=== PATIENT | female | born 1945 | race Caucasian/White ===

== ENCOUNTER 2018-01-07 09:56 | Inpatient (IN) ==
[2018-01-07] MEDS ORDERED: ONDANSETRON 4 MG/2 ML INJECTION IVP PRN (10:31)
[2018-01-07] MEDS ORDERED: METOCLOPRAMIDE 10mg/2ml INJECTION IVP PRN (10:31)
[2018-01-07] MEDS ORDERED: VANCOMYCIN 1,000 MG in NS 500ml 500 ML IV ONE (10:31)
[2018-01-07] MEDS ORDERED: VANCOMYCIN - PHARMACY CONSULT MC ONE (10:31)
[2018-01-07 11:03] VITALS: BMI 24.6
--- NOTE | 2018-01-07 11:06 | XRay Report ---
Indication: chills, r/o sepsis PROCEDURE: XR chest 1V: Encounter: Initial Comparison: December 24, 2017 Findings: Increasing small left pleural effusion with left basilar compressive atelectasis. Prior right pleural effusion has decreased or resolved. Right PICC line in place with the tip projecting over the superior SVC. No pneumothorax. Right lung is clear. Heart size and mediastinal contours are stable. Pulmonary vascularity is stable. Impression: Increasing small left effusion. .
[2018-01-07] MEDS: SALINE FLUSH 10ml SYRINGE IV PRN ×4 (11:14→18:57)
[2018-01-07] MEDS: NS FLUSH BAG 500ml IV PRN ×3 (11:14→16:17)
[2018-01-07] MEDS: AZTREONAM 1 G in NS 100 ML IV SCH ×2 (11:15→18:14)
--- NOTE | 2018-01-07 11:21 | History & Physical Report ---
History of Present Illness Date: 01/07/18 Chief complaint: Legs are weak HPI: Doris Phelps is a 72 year old woman who was directly admitted from Dr. Gutierrez's office after a near-syncopal event. She has a hx of multiple myeloma, diagnosed initially in January, with recent recurrence discovered via bone marrow biopsy in Dec, 2017. She has been weak and fatigued and has required recent transfusions of platelets and blood. When she arrived in the office, she stated that her legs became weak and she slid down the wall. She denied any preceding sx including chest pain, palpitations, dizziness/vertigo, dyspnea, nausea or diaphoresis. She wasn't sure if she lost consciousness or not -- staff who witnessed the event report that she did not lose consciousness. She recalls recognizing everyone immediately after this event and denies seizure-like activity, oral injury (ie biting tongue), or incontinence. She also denies any recent illnesses such as cough, sinus congestion/drainage, sore throat, abdominal pain, n/v/d, or dysuria. She denies fever but reports feeling chilled. She has had poor oral intake/anorexia for the last year and has lost 65 lbs since initially diagnoses. She has a hx of constipation but this is kept under control with a daily stool softener. She denies black/bloody stools. She occasionally has trouble swallowing, especially meat, but denies choking. She's noticed that she's bruising much easier now. She states that she voids frequently but this improved some after stopping her Lasix. She denies leg swelling but states that she has always had big ankles and earlier had some mild tenderness to her medial left ankle. She denies other joint pain/swelling. In the clinic, her BP was 87/64. She was given a 500 cc NS bolus. Labs showed severe anemia and thrombocytopenia (hgb of 5.4 and platelets of 6). In addition , WBC was only 0.7. Lactate and procalcitonin were negative. BC x2 were drawn and UA was negative for UTI. CXR showed small left effusion that was increasing in size with compressive atelectasis but a previously noted right effusion had resolved. Also, K and mag were both slightly low at 3.3 and 1.5. Review of Systems All systems PM: 10-point ROS was reviewed, no additional remarkable complaints except - EENMT Eyes: Present: requires corrective lenses - Integumentary/Breasts Integumentary: Absent: rash Past Medical History Medical History: Medical History (Last Updated 04/24/17 @ 09:23 by Dennise Myrick) Hypertension Medical History Updates: Multiple myeloma Surgical History: Tubal ligation. Right humerus ORIF Dr. Montemayor 2016 Family History: Family History (Last Updated 04/24/17 @ 09:28 by Dennise Myrick) Mother Non-Hodgkin lymphoma Father Heart disease Diabetes Family History Updates: Mother - at age 86 of NHL; also had breast cancer in her 70s. She also had high cholesteral; CAD; CABG x3; PVD. Father - diabetes ; needed leg amputation from diabetes; slow bone cancer that wasn't r/t to . of CHF, age 86. 1 sister (younger) - healthy Family History: As Above - Social History Smoking status: Never smoker (second hand exposure all her life) Substance use type: does not use Alcohol intake frequency: does not drink Household members: significant other (He is ill with metastatic prostate cancer) Current occupational status: retired (age 64) Previous occupational history: [employer]; [employer]; [employer] @ [employer] Medications Home Medications Medication Instructions Recorded Confirmed Type Zovirax (acyclovir) 400 mg tablet 400 mg PO BID tab 04/24/17 01/07/18 History calcium carbonate 600 mg (1,500 1 tab PO BID 04/24/17 01/07/18 History mg)-vitamin D3 400 unit tablet Norvasc (amlodipine) 5 mg tablet 5 mg PO .COMPLEX #30 tab 10/23/17 01/07/18 Rx lisinopril 20 mg tablet 20 mg PO DAILY 10/23/17 01/07/18 History lenalidomide 10 mg capsule 2 cap PO DAILY 28 Days #28 11/22/17 01/07/18 History oxycodone-acetaminophen 5 mg-325 1 tab PO Q6H #30 tab 12/13/17 01/07/18 Rx mg tablet Potassium Chloride 20 meq PO DAILY 01/07/18 01/07/18 History Allergies Allergy/AdvReac Type Severity Reaction Status Date / Time Penicillins Allergy Mild RASH Verified 01/07/18 11:09 Sulfa (Sulfonamide Allergy Mild RASH Verified 01/07/18 11:09 Antibiotics) KELFEX AdvReac Diarrhea Uncoded 11/22/17 10:56 Exam Vital Signs: Temperature 98.2 F 01/07/18 10:37 Pulse Rate 95 01/07/18 10:37 Respiratory Rate 24 01/07/18 10:37 Pulse Oximetry 93 01/07/18 10:37 Telemetry Rhythm: Sinus Rhythm Height/Weight/BMI: Height 1.57 m Weight 61.2 kg Body Mass Index 24.6 - Constitutional Present: no acute distress, well nourished, well developed, thin - Routine HEENT Exam Head: Present: normocephalic Eye: Present: PERRL. Absent: conjunctival icterus, scleral injection ENT: Present: mucous membranes moist, oropharynx clear - Routine Neck Exam Present: supple. Absent: lymphadenopathy - Routine Respiratory Exam Present: decreased breath sounds (b/l bases, L>R) - Routine Cardiovascular Exam Present: RRR, S1, S2 - Routine Abdominal Exam Present: soft, normoactive bowel sounds, non distended, non tender - Routine Extremities Exam Present: no edema, pulses intact. Absent: calf tenderness, joint swelling Comments: no tenderness to left ankle PICC right arm - Routine Skin Exam Present: pallor, warm, ecchymosis (arms) - Routine Neurological Exam Present: alert, oriented X3, CN II-XII intact, moving all extremities, vision grossly intact, hearing grossly intact, normal speech. Absent: sensory deficit , motor deficit, altered mental status, facial asymmetry - Routine Psychiatric Exam Present: normal affect, normal thought process, cooperative Results - Labs CBC & Chem 7: 01/07/18 08:35 - Imaging and Cardiology Chest x-ray Status: image reviewed by me Additional comments: Increasing small left pleural effusion with left basilar compressive atelectasis. Prior right pleural effusion has decreased or resolved. Right PICC line in place with the tip projecting over the superior SVC. No pneumothorax. Right lung is clear. Assessment and Plan Assessment and Plan: Assessment Near syncope Pancytopenia (severe neutropenia, anemia, thrombocytopenia) Hypotension - resolved (Underlying HTN) Hypomagnesemia (POA) Hypokalemia (POA) HTN Moderate Protein Calorie Malnutrition Rule out sepsis - at time of admission, she had 3 SIRS criteria of HR >90, tachypnea, and leukopenia without identified infectious source Small left pleural effusion Multiple myeloma Plan Admit to CCU, inpatient status. Neutropenic precautions implemented. PRBC x2 units ordered. Platelet packs x2. Consult Dr. Gutierrez. Oncologist: Dr. Ann. Start vancomycin (per pharm), levofloxacin, aztreonam until sepsis/infectious etiology can be ruled out. Follow results of BC. 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 Start NS at 130 mL/hr & hold antiHTN meds. Replace K and mg PO - recheck in am. Consult CM for discharge planning - her sig other also is ill with cancer; sister is a marketing traffic coordinator and she is planning on sx soon herself. May need HH. Advanced directive info being faxed over. Full code status. PCP: Dr. Hummel. DVT Prophylaxis: SCD's Resuscitation Status: Full Code - Physician Narrative Physician: Allen Horn MD Narrative: Date: 01/07/18 Time: 1420 Have independently interviewed and examined pt. Chart reviewed. Cased discussed with my ARPN. Care plan developed with my supervision; agree with above. Not doing well. Feeling weak and puny for last several days. Oral drive decreased-not very hungry and difficult to find foods that sound appealing. Stools stable. Notes frequent urinations but not having burning or discomfort. Slight cough but no pain with breathing of chest congestion. Denies palpitations. Chills at times. In clinic had near syncopal event. CBC with pancytopenia. BP low. Made direct admit to [facility] CCU for further care and support. Lungs: decreased, no distress CV: regular AB: soft nt/nd EXT: +2 BLE MSE: awake alert Plan: Inpatient admission to [facility]. Will start empiric antibiotics due to pancytopenia and hypotension-exclude sepsis as source of symptoms. IVF to help BP. Transfusion of 2 units PRBC due to anemia and 2 units Platelets due to thrombocytopenia - with Chemo, patient unlikely to improve counts on her own. Neutropenic precautions. SCD - Avoid Lovenox due to thrombocytopenia. Monitor blood counts. Replace MG and Phos. Full code. Care to return to Dr Hummel at time of discharge from [facility]. Hospital Course Summary Disclaimer: The visit summary below is not to be considered part of the above Progress Note. Hospital Course: 01/07/18 Admit to CCU, inpatient status. Neutropenic precautions implemented. PRBC x2 units ordered. Platelet packs x2. Consult Dr. Gutierrez. Oncologist: Dr. Ann. Start vancomycin (per pharm), levofloxacin, aztreonam until sepsis/infectious etiology can be ruled out. Follow results of BC. 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 Start NS at 130 mL/hr & hold antiHTN meds. Replace K and mg PO - recheck in am. Consult CM for discharge planning - her sig other also is ill with cancer; sister is a marketing traffic coordinator and she is planning on sx soon herself. May need HH. Advanced directive info being faxed over. Full code status.
[2018-01-07] MEDS: LEVOFLOXACIN PB 750 MG/150 ML BAG IV SCH (12:01)
[2018-01-07] MEDS ORDERED: NS 1,000 ML IV SCH (12:30)
[2018-01-07] MEDS ORDERED: Oxycodone/Acetaminophen 5/325 1 TAB PO SCH (12:30)
--- NOTE | 2018-01-07 13:16 | Pharmacy Consult-Antibiotics ---
Pharmacy Consult-Vancomycin - Laboratory Information Creatinine 0.8 mg/dL (0.7-1.2) 01/07/18 08:35 - Consult Information Consult noted by Lucia Ratliff APRN to begin vancomycin therapy for Ms Phelps, who is 72yo and weighs 61.2kg. Will give vancomycin 1500mg IV as a loading dose followed by vancomycin 1250mg IV q18h. Will continue to monitor. Thank you.
[2018-01-07] MEDS ORDERED: MAGNESIUM SULFATE 1gm PREMIX 1 GM/100 ML BAG IV ONE (13:56)
[2018-01-07] MEDS ORDERED: BISACODYL 10 MG SUPPOSITORY RECTALLY PRN (13:56)
[2018-01-07] MEDS ORDERED: POLYETHYL GLYCOL 3350 17gm PACKET PO PRN (13:56)
[2018-01-07] MEDS ORDERED: ACETAMINOPHEN 325 MG TABLET PO PRN (13:57)
[2018-01-07] MEDS: MAGNESIUM OXIDE 400 MG TABLET PO SCH ×2 (14:29→22:26)
[2018-01-07] MEDS ORDERED: NS FLUSH BAG 500ml IV PRN (17:17)
[2018-01-07] MEDS: ACYCLOVIR 200 MG CAPSULE PO SCH (22:26)
[2018-01-07] MEDS: CALCIUM 600 + VIT D 400 TABLET PO SCH (22:26)
[2018-01-08] MEDS: AZTREONAM 1 G in NS 100 ML IV SCH ×2 (00:40→08:01)
[2018-01-08] MEDS ORDERED: POTASSIUM CHLORIDE PREMIX 10 MEQ/100 ML BAG IV SCH (05:15)
[2018-01-08] MEDS ORDERED: LENALIDOMIDE PO SCH (09:00)
[2018-01-08] MEDS: CALCIUM 600 + VIT D 400 TABLET PO SCH ×2 (09:59→22:20)
[2018-01-08] MEDS: ACYCLOVIR 200 MG CAPSULE PO SCH ×2 (09:59→22:20)
[2018-01-08] MEDS: MAGNESIUM OXIDE 400 MG TABLET PO SCH ×2 (09:59→22:21)
[2018-01-08] MEDS: POTASSIUM CHLORIDE PREMIX 10 MEQ/100 ML BAG IV SCH ×3 (11:12→13:38)
[2018-01-08] MEDS: LEVOFLOXACIN PB 750 MG/150 ML BAG IV SCH (12:00)
--- NOTE | 2018-01-08 13:45 | Progress Note ---
- Date 01/08/18 Subjective: Mrs. Phelps denies dyspnea this morning and reports that she felt steady when she was out of bed to bedside commode. Edema is slightly improved and she's had no further chilling and no fever overnight. She slept well after Davis catheter was placed due to need to diurese following multiple blood products yesterday. She denies nausea and had a bowel movement earlier. She was able to eat this morning but reports that she has a coating on her tongue and that her tongue "tastes nasty". Overall she feels improved with residual weakness. Objective Vital signs: Temperature 99.1 F 01/08/18 12:00 Pulse Rate 89 01/08/18 12:00 Respiratory Rate 24 01/08/18 12:00 Blood Pressure 135/66 01/08/18 12:00 Pulse Oximetry 95 - RA 01/08/18 12:00 I/O 3193/2455 NAD, alert, fluent speech Conjunctiva clear, sclera anicteric, no palpebral petechiae/hemorrhages, oropharynx clear, tongue with white coating consistent with thrush Respirations nonlabored, good airflow, breath sounds clear except at the bases where diminished Regular rhythm, S1-S2, soft systolic murmur left upper sternal border Abdomen soft, nontender, bowel sounds present Hands are slightly puffy bilaterally, +1 edema bilateral lower extremities Skin without petechiae but multiple small bruises in various stages present Moving all extremities well; left midline catheter-insertion site unremarkable Degenerative changes of small joints of the hands present without active synovitis Calm, cooperative Height/Weight/BMI: Height 1.57 m Weight 68.8 kg Body Mass Index 24.6 Results - Labs CBC & Chem 7: 01/08/18 08:41 01/08/18 04:25 Labs: WBC 0.4, platelet count 41; ANC 80 Bilirubin 2.2, remainder of liver enzymes unremarkable, albumin 2.3, prealbumin albumin 9.5 Magnesium 1.7 Microbiology Results: Blood cultures 2 and urine culture drawn yesterday in the office both negative at 24 hours - Imaging and Cardiology Chest x-ray Status: image reviewed by me (small left pleural effusion on chest x-ray 01/07) Assessment and Plan (1) Near syncope Current visit: Yes Status: Acute (2) Hypotension Current visit: Yes Status: Acute Assessment and Plan: Assessment Near syncope Pancytopenia (severe neutropenia, anemia, thrombocytopenia) Volume overload, posttransfusion Hypotension - resolved (Underlying HTN) Hypomagnesemia (POA) Hypokalemia (POA) HTN Moderate Protein Calorie Malnutrition Rule out sepsis - at time of admission, she had 3 SIRS criteria of HR >90, tachypnea, and leukopenia without identified infectious source Small left pleural effusion Multiple myeloma Thrush-01/08/18 Plan: Hemodynamically improved today although weakness persists. PT/OT consults. Marked neutropenia-ANC 80. No fever and tachypnea/tachycardia have subsided with stabilization of hemoglobin. Blood cultures negative overnight. -Vancomycin and aztreonam discontinued; continue Levaquin orally for prophylaxis at present. Will discuss anticipated duration of neutropenia with oncology. Repeat CBC this afternoon, hemoglobin has fluctuated somewhat since transfusion of 2 units PRBCs yesterday; platelet count [id number]--> may need platelets again in the next 1-2 days. Ongoing potassium replacement IV this morning; repeat electrolytes this afternoon to determine if adequately replaced. Probable thrush-nystatin suspension initiated. Volume status improved with diuresis late yesterday. Anticipate discontinuation of Davis catheter in the morning tomorrow if no further diuretics. Discussed with Dr. Gutierrez earlier. - Physician Narrative Narrative: Date: 01/08/18 Time: 1342 Hospital Course Summary Disclaimer: The visit summary below is not to be considered part of the above Progress Note. Hospital Course: 01/07/18 Admit to CCU, inpatient status. Neutropenic precautions implemented. PRBC x2 units ordered. Platelet packs x2. Consult Dr. Gutierrez. Oncologist: Dr. Ann. Start vancomycin (per pharm), levofloxacin, aztreonam until sepsis/infectious etiology can be ruled out. Follow results of BC. 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 Start NS at 130 mL/hr & hold antiHTN meds. Replace K and mg PO - recheck in am. Consult CM for discharge planning - her sig other also is ill with cancer; sister is a diving coach and she is planning on sx soon herself. May need HH. Advanced directive info being faxed over. Full code status. 01/08/18 Hemodynamically improved today although weakness persists. PT/OT consults. Marked neutropenia-ANC 80. No fever and tachypnea/tachycardia have subsided with stabilization of hemoglobin. Blood cultures negative overnight. -Vancomycin and aztreonam discontinued; continue Levaquin orally for prophylaxis at present. Will discuss anticipated duration of neutropenia with oncology. Repeat CBC this afternoon, hemoglobin has fluctuated somewhat since transfusion of 2 units PRBCs yesterday; platelet count [id number]--> may need platelets again in the next 1-2 days. Ongoing potassium replacement IV this morning; repeat electrolytes this afternoon to determine if adequately replaced. Probable thrush-nystatin suspension initiated.
[2018-01-08] MEDS: NYSTATIN 500,000 units/5 ml ORAL LIQUID PO SCH ×3 (14:57→22:21)
[2018-01-08] MEDS: SALINE FLUSH 10ml SYRINGE IV PRN (16:32)
--- NOTE | 2018-01-08 21:55 | Consult Note ---
Oncology HPI - Data of Consult Patient: known to practice within the last 3 years Consult date: 01/08/18 Requesting Physician: Eula Rahman MD Primary Care Provider: Rahul Hummel DO - Consult Narrative Reason for consult: Multiple myeloma History of present illness: This is a 72-year-old woman with a history of chronic low back pain, noted during routine medical visit and a follow-up for hypertension, to have an elevated serum protein of 8.3. Otherwise, CMP within normal range with a creatinine of 0.8. Serum protein electrophoresis showed an M-spike in the gamma region. Myeloma studies at time of diagnosis 1. Serum protein immunofixation: New monoclonal in beta2 and gamma region identified as IgA kappa by immunofixation. The monoclonal spike reported at 3.1. 2. 24 hour urine protein electrophoresis immunofixation: New IgA kappa detected. 3. Serum light chain kappa/lambda ratio: Elevated at 124 (N 0.2600 - 1.65) 4. Quantitative immunoglobulins: IgG low at 365 mg/dL, IgM low at 26 and IgA elevated at 3,872 mg/dL. 5. Beta-2 macroglobulin: 2.12 6. Skeletal survey: Lytic lesion in the distal right humerus. 7. Bone marrow aspiration and biopsy from 01/30/2017 showed hypercellular marrow 7080% with decreased trilineage hematopoiesis involved by plasma cell neoplasm/ plasma cell myeloma with mildly atypical monoclonal plasma cells estimated at count 475% of her cells. Chromosome analysis revealed normal female karyotype 40 6XX. Myeloma FISH panel was abnormal with gain of 1q21, IGH/FR3 fusion-t(4;14 ) monosomy for chromosome 13. Patient was started on RVD on 03/19/2017. 06/18/2017: Assessment after 4 cycles of RVD: 1. Bone marrow aspiration biopsy on 06/05/17 after 4 cycles of RVD showed no morphologic diagnostic evidence of plasma cell neoplasm identified. The bone marrow is mildly hypercellular 4050% with trilineage hematopoiesis. There is only 1-2% polytypic plasma cells. At time of diagnosis, bone marrow on 01/31/2017 showed atypical monoclonal plasma cells 75% of motor cells. Flow cytometry showed no significant immunophenotypic abnormalities detected. Cytogenetics revealed 46XX female karyotype. 2. Myeloma markers: Beta-2 microglobulin normal at 1.99, SPEP with immunofixation showed no monoclonal spike. Essentially normal electrophoretic pattern. [place] lambda ratio slightly elevated at 2.85 down from 124. IgA normal at 60 down from more than 3000. CBC and CMP unremarkable. The patient underwent autologous stem cell transplant at [facility] by Dr. Patel on 08/09/2017 without major complications. She has engrafted and discharged for follow-up as an outpatient. She is doing fine. She has no fever. 11/05/2017: The patient has been doing very well with no problems. She is scheduled to see Dr. Patel on November 18 for day +100 post transplant follow-up. Lab: WBC 4.1 with ANC of 1.8, hemoglobin 9.9 and platelet count 214,000. Chemistry unremarkable. 12/04/2017: The patient presented to Dr. Hummel's office with chest wall pain, left lower rib pain. Bone scan on 11/27/2017: Evidence of metastatic disease in the right humerus and left sixth rib. X-ray of ribs: Healing left sixth rib fracture. SPEP/JACKELIN on 11/11/2017: No M spike observed. 24 hour urine protein electrophoresis/JACKELIN: No M spike observed. Free serum light chains kappa 587, lambda 16 with a ratio of 36.72. --Repeat myeloma markers on 12/03/2017. IgG 779, IgA 56 and IgM 37: CBC with stable hemoglobin of 9.8 Chemistry with creatinine of 0.9, normal LFTs, elevated alkaline phosphatase at 173. Total protein 6.6 and calcium 9.4. 12/11/2017: Myeloma markers: Beta-2 microglobulin elevated at 7.68 up from 1.99. Immunoglobulins: IgG 779, IgA 56 and IgM 37.3. SPEP/JACKELIN: Normal, previously reported IgA kappa was not detected by immunofixation. Serum free light chains: [place] 410, lambda 0.9450 with a ratio of 434. LDH elevated at 808. Hemoglobin 8.9. Creatinine 0.9. Calcium 9.4 with normal ionized calcium. 12/17/2017: The patient continues to have left-sided chest wall pain. X-rays showed [address] scan of the chest without contrast on 12/13/2017 shown interval development of lung nodules some of them pleural-based highly concerning for recurrent disease versus opportunistic infection. CBC today: WBC 5.9 with ANC of 1.8, hemoglobin down to 8.4 and platelets count down to 71,000. Creatinine 3.2 12/18/2017: PET scan on 12/18/2017 The PET scan showed multifocal areas of abnormal FDG uptake in the pelvic bones humerus, soft tissue mass in the left posterior mediastinum at the level of T9-T10 with an SUV of 7.9. There are multiple small pulmonary nodules without definite FDG uptake. Repeat chemistry came back with creatinine of 2.6 down from 3.2 and BUN of 50. 6 CRP elevated at 233.9. ESR 108. 12/24/2017: For acute renal failure, the patient has been getting hydration almost daily. Her creatinine fortunately went down from more than 3 to the normal range. She is requiring potassium replacement. Ultrasound showed no hydronephrosis. Bone marrow on 12/17/2017: Recurrent plasma cell myeloma with sheets of atypical monoclonal plasma cells occupying almost the entire samples bone marrow space. Hypercellular marrow 95% with markedly diminished trilineage hematopoiesis. Moderate increased marrow reticulin fibers. FISH revealed abnormal myeloma panel : Gain of 1q21, FGFR3/IGH translocation t(4;14), monosomy of chromosome 13 and deletion of TP53/17p. 12/31/17: The patient received the first cycle of DRd on 12/25/2017 without complications. Her lab today remarkable for ANC of 0.8, hemoglobin of 6.1 and platelets count of 10,000. Chemistry potassium 2.9. Creatinine 1.1. Calcium 8.1. Bilirubin 2.0. LDH down to 300 for more than 1000. The patient has felt better with less chest wall/ribs pain. She is using less pain medicine. 01/07/18: Upon arrival at the clinic, patient got dizzy and went down to the floor. Blood pressure was low.. She states that she does not feel comfortable going home, due to no one being able to care for her. I am going to plan on admission to [facility] [place]. 01/08/18: Patient admitted to ICU yesterday she was moved up to the floor today. She received blood and platelets. Review of Systems - Constitutional Constitutional: Present: anorexia, fatigue, weakness, weight loss - EENT Eyes: Present: blurry vision (needs classes) Nose: Absent: nosebleeds Mouth/Throat: Absent: pain, sore throat - Cardiovascular Cardiovascular: Present: syncope, edema. Absent: chest pain - Respiratory Respiratory: Absent: cough, dyspnea, hemoptysis - Gastrointestinal Gastrointestinal: Absent: abdominal pain, nausea, vomiting - Genitourinary Menstruation: other (Davis catheter) - Musculoskeletal Musculoskeletal: Present: muscle weakness. Absent: joint swelling - Neurological Neurological: Absent: focal weakness, headache(s), numbness - Hematologic/Lymphatic Hematologic/Lymphatic: Present: anemia, easy bleeding [facility] Patient Stated Medical History Cerebrovascular Accident No Meningitis No Parkinson's Disease No Angina No Cardiac Arrhythmia No Hypertension No Hypotension No Asthma Yes: childhood Gastroesophageal Reflux No Disease Hiatal Hernia No Ulcer No Hx Kidney Stones No Hx Renal Disease No Hx Urinary Tract Infection No Anemia Yes Blood Disorders Yes: multiple myloma 01/30/17 Other Musculoskeletal Yes: spontaneous fractures Clostridium Difficile No MRSA No Sepsis No Blood Transfusions Yes Post Menopausal Yes Clinic Medical History (Last Updated 01/08/18 @ 13:30 by Eula Rahman MD) Fracture of humerus, closed (Acute Medical) Right, s/p ORIF Dr. Marrero 2016 Multiple myeloma (Acute Medical) Hypertension (Chronic Medical) Arthritis Medical History Updates: Multiple myeloma Surgical History: Tubal ligation. Right humerus ORIF Dr. Montemayor 2017 Family History: Family History (Last Updated 04/24/17 @ 09:28 by Dennise Myrick) Mother Non-Hodgkin lymphoma Father Heart disease Diabetes Family History Updates: Mother - at age 86 of NHL; also had breast cancer in her 70s. She also had high cholesteral; CAD; CABG x3; PVD. Father - diabetes ; needed leg amputation from diabetes; slow bone cancer that wasn't r/t to . of CHF, age 86. 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 @ [employer] Current residence: Apartment/Private Home Medications Home Medications Medication Instructions Recorded Confirmed Type Zovirax (acyclovir) 400 mg tablet 400 mg PO BID tab 04/24/17 01/07/18 History calcium carbonate 600 mg (1,500 1 tab PO BID 04/24/17 01/07/18 History mg)-vitamin D3 400 unit tablet Norvasc (amlodipine) 5 mg tablet 5 mg PO .COMPLEX #30 tab 10/23/17 01/07/18 Rx lisinopril 20 mg tablet 20 mg PO DAILY 10/23/17 01/07/18 History lenalidomide 10 mg capsule 2 cap PO DAILY 28 Days #28 11/22/17 01/07/18 History oxycodone-acetaminophen 5 mg-325 1 tab PO Q6H #30 tab 12/13/17 01/07/18 Rx mg tablet Potassium Chloride 20 meq PO DAILY 01/07/18 01/07/18 History Allergies Allergy/AdvReac Type Severity Reaction Status Date / Time Penicillins Allergy Mild RASH Verified 01/07/18 11:09 Sulfa (Sulfonamide Allergy Mild RASH Verified 01/07/18 11:09 Antibiotics) KELFEX AdvReac Diarrhea Uncoded 11/22/17 10:56 Exam Vital signs: Temperature 96.1 F L 01/08/18 15:04 Pulse Rate 84 01/08/18 15:22 Respiratory Rate 18 01/08/18 15:04 Blood Pressure 130/67 01/08/18 15:04 Pulse Oximetry 96 01/08/18 15:04 - Constitutional no acute distress, thin - Routine HEENT Exam Head: Present: normocephalic Eye: Present: EOMI, PERRL ENT: Present: mucous membranes moist - Routine Neck Exam Present: supple. Absent: lymphadenopathy, tenderness - Routine Respiratory Exam Present: CTA bilaterally. Absent: respiratory distress - Routine Cardiovascular Exam Present: RRR, no murmur - Routine Abdominal Exam Present: soft, non distended, non tender. Absent: organomegaly - Routine Extremities Exam Present: edema (1+). Absent: cyanosis, clubbing - Routine Skin Exam Present: dry, warm - Routine Neurological Exam Present: alert, oriented X3, CN II-XII intact - Routine Psychiatric Exam Present: normal affect Oncology Results - Labs CBC & Chem 7: 01/08/18 16:09 01/08/18 16:09 Labs: Short CBC 01/08/18 01/08/18 01/08/18 Range/Units 04:25 08:41 16:09 WBC 0.4 L* D 0.5 L* (4.5-11.0) T/MM3 Hgb 6.7 L D 8.6 L D 7.8 L (12-16) GM/DL Hct 19.0 L D 23.1 L D (36-46) % Plt Count 41 L 26 L* D (130-400) T/MM3 BMP 01/08/18 01/08/18 04:25 16:09 Sodium 139 Potassium 3.1 L 3.6 Chloride 106 Carbon Dioxide 25 BUN 17.0 Creatinine 0.8 Glucose 104 Calcium 7.5 L D Liver Function 01/08/18 Range/Units 04:25 Total Bilirubin 2.20 H (0.20-1.30) MG/DL AST 8 L (14-36) U/L ALT 11 (1-35) U/L Alkaline Phosphatase 84 (38-126) U/L Albumin 2.3 L (3.5-5.0) g/dL Assessment and Plan Assessment and Plan: 1. Syncopal episode while walking in the office 01/07 with associated hypotension . Patient was lowered to the floor by nursing staff. No apparent trauma. Blood pressure at that time was 87 systolic. She was set up and tolerated sitting up in the floor without problems, lifted to a wheelchair and then brought to the treatment room. Blood work was drawn and IV normal saline was started. Lab work came back with a low hemoglobin, low platelets and low white count. Discussed with hospitalist and will make a direct admit. Because of concern about low white count or sepsis, blood cultures have been obtained. Blood cultures are negative at 24 hours patient received blood and platelets yesterday. Counts are improved today platelets are 26,000 today. 2. Multiple myeloma on Darzalex, Revlimid and dexamethasone. Treatment currently on hold 3. Leukopenia secondary to treatment. Will use G-CSF support. WBC 500 on 01/08/18. 4. Anemia. Hemoglobin 5.4 on 01/07/18. This is declined from 7.9 on 01/03/18 after 2 unit packed cells. Currently 7.8 on 01/08/18 transfusion support 5. Thrombocytopenia. Platelets of 6000 down from 10,000 on 01/03/18 after 1 unit of packed red blood cells. She received 2 units of platelets on 01/07/18. Platelets on 01/08/18 are 26K. 6. Hyperbilirubinemia. Bilirubin 2.2 on 01/08/18. Probably related to transfusion
[2018-01-09] MEDS: LEVOFLOXACIN 750 MG TABLET PO SCH (06:40)
[2018-01-09] MEDS: SALINE FLUSH 10ml SYRINGE IV PRN ×3 (06:42→20:08)
[2018-01-09] MEDS: Oxycodone/Acetaminophen 5/325 1 TAB PO PRN ×2 (08:32→13:46)
[2018-01-09] MEDS: ACYCLOVIR 200 MG CAPSULE PO SCH ×2 (09:29→21:50)
[2018-01-09] MEDS: CALCIUM 600 + VIT D 400 TABLET PO SCH ×2 (09:29→21:50)
[2018-01-09] MEDS: NYSTATIN 500,000 units/5 ml ORAL LIQUID PO SCH ×4 (09:30→21:49)
[2018-01-09] MEDS: MAGNESIUM OXIDE 400 MG TABLET PO SCH ×2 (09:30→21:50)
[2018-01-09] MEDS ORDERED: POTASSIUM PHOSPHATE (mMol) 20 MMOL in NS 500ml 500 ML IV SCH (10:15)
[2018-01-09] MEDS ORDERED: CALCIUM CARBONATE Chewable 500mg TABLET PO ONE (16:35)
--- NOTE | 2018-01-09 16:51 | Progress Note ---
- Date 01/09/18 Subjective: Mrs. Phelps reported having mild dyspnea last night which improved with repositioning in bed; nursing reports oxygen was stable on room air throughout the time she described feeling short of breath. She's had 2 watery stools this morning and nursing plans to check C. difficile another stool occurs. Patient reports that she felt good this morning until after cleaning up in her room and brushing her teeth at which time she felt like all of her energy drained out of her and that she felt "shivery" for a brief period of time after which symptoms subsided. She denies abdominal pain, nausea, dysuria, or urinary frequency. She has not had recurrent lightheadedness and she denies any awareness of bleeding. Objective Vital signs: Temperature 97.4 F 01/09/18 12:00 Pulse Rate 88 01/09/18 12:00 Respiratory Rate 16 01/09/18 04:00 Blood Pressure 140/60 H 01/09/18 12:00 Pulse Oximetry 98 01/09/18 12:00 NAD, alert, resting in bed comfortably Conjunctiva clear, sclera anicteric, no petechial hemorrhages seen Oropharynx with residual white plaque on tongue but no ulcerations or petechiae Respirations nonlabored, good airflow, breath sounds clear except decreased breath sounds at the bases posteriorly Regular rhythm, S1-S2 Abdomen soft, nontender, nondistended, bowel sounds present Trace edema bilateral ankles Skin without petechiae but multiple bruises present Moving all extremities well Height/Weight/BMI: Height 1.57 m Weight 60 kg Body Mass Index 24.6 Results - Labs CBC & Chem 7: 01/09/18 04:12 01/09/18 04:12 Labs: S42, B2, L44, M2 ANC 230 Phosphorus 1.6, magnesium 1.6, calcium 7.2, and albumin 2.2 Microbiology Results: Blood cultures 2 and urine culture obtained 01/07/18 ([employer]) all negative to date Assessment and Plan (1) Near syncope Current visit: Yes Status: Acute (2) Hypotension Current visit: Yes Status: Acute Assessment and Plan: Assessment Near syncope Pancytopenia (severe neutropenia, anemia, thrombocytopenia) Volume overload, posttransfusion Hypotension - resolved (Underlying HTN) Hypomagnesemia (POA) Hypokalemia (POA) HTN Moderate Protein Calorie Malnutrition Rule out sepsis - at time of admission, she had 3 SIRS criteria of HR >90, tachypnea, and leukopenia without identified infectious source Small left pleural effusion Multiple myeloma Thrush-01/08/18 Hypophosphatemia-01/09/18 Plan: Hemodynamically improved today although weakness today corresponding to drop in hemoglobin. Transfuse 1 unit packed red blood cells today. Platelet count dropping-reassess with post transfusion hemoglobin; no evidence of bleeding at present-platelet pack if count drops to 10 or below. Marked neutropenia but ANC rebounding slightly today to 230. No fever and tachypnea/tachycardia have subsided with stabilization of hemoglobin. Blood cultures remain negative at 48 hours. -Vancomycin and aztreonam discontinued 01/08; continue Levaquin orally for prophylaxis at present. Potassium and phosphorus replaced IV this morning; reassess tomorrow. Magnesium borderline-increased supplementation to 800 mg twice a day. Probable thrush-nystatin suspension initiated 01/08. Volume status stable. May require additional diuresis with transfusion today; discontinue Davis catheter in the morning. Discussed with Dr. Gutierrez earlier. DVT Prophylaxis: SCD's Resuscitation Status: Full Code - Physician Narrative Narrative: Date: 01/09/18 Time: 1645 Hospital Course Summary Disclaimer: The visit summary below is not to be considered part of the above Progress Note. Hospital Course: 01/07/18 Admit to CCU, inpatient status. Neutropenic precautions implemented. PRBC x2 units ordered. Platelet packs x2. Consult Dr. Gutierrez. Oncologist: Dr. Ann. Start vancomycin (per pharm), levofloxacin, aztreonam until sepsis/infectious etiology can be ruled out. Follow results of BC. BP improved after 500 mL bolus [employer]. Start NS at 130 mL/hr & hold antiHTN meds. Replace K and mg PO - recheck in am. Consult CM for discharge planning - her sig other also is ill with cancer; sister is a mall manager and she is planning on sx soon herself. May need HH. Advanced directive info being faxed over. Full code status. 01/08/18 Hemodynamically improved today although weakness persists. PT/OT consults. Marked neutropenia-ANC 80. No fever and tachypnea/tachycardia have subsided with stabilization of hemoglobin. Blood cultures negative overnight. -Vancomycin and aztreonam discontinued; continue Levaquin orally for prophylaxis at present. Will discuss anticipated duration of neutropenia with oncology. Repeat CBC this afternoon, hemoglobin has fluctuated somewhat since transfusion of 2 units PRBCs yesterday; platelet count [id number]--> may need platelets again in the next 1-2 days. Ongoing potassium replacement IV this morning; repeat electrolytes this afternoon to determine if adequately replaced. Probable thrush-nystatin suspension initiated. 01/09/18 Hemodynamically improved today although weakness today corresponding to drop in hemoglobin. Transfuse 1 unit packed red blood cells today. Platelet count dropping-reassess with post transfusion hemoglobin; no evidence of bleeding at present-platelet pack if count drops to 10 or below. Marked neutropenia but ANC rebounding slightly today to 230. No fever and tachypnea/tachycardia have subsided with stabilization of hemoglobin. Blood cultures remain negative at 48 hours. Potassium and phosphorus replaced IV this morning; reassess tomorrow. Magnesium borderline-increased supplementation to 800 mg twice a day.
--- NOTE | 2018-01-09 17:04 | Progress Note ---
<Maria M Lott Kristi - Last Filed: 01/09/18 17:01> Oncology Subjective Reclining in hospital bed. Alert and oriented. Becomes mildly anxious when discussing current hospitalization/disease regression. Denies fever or chills. Had a single episode of weakness today after had taken a bath and was walking back to her bed. Denies syncope or fall. Eating and drinking better. No new aches or pains. It's pudding consistency stool today, no overt diarrhea General: No fever, no night sweats Eyes: No redness, no pain, no diplopia ENT: No mouth sores, no trouble swallowing Cardiac: No chest pain no palpitations Pulmonary: No cough, no shortness of breath, no wheezing Abdomen: No pain, no nausea vomiting, no diarrhea or constipation : [place] Musculoskeletal: No arthritis, no myalgias Neurological: No headaches, no focal weakness Skin: No rash, no sores Psychiatric: Mild anxiety Exam Vital signs: Temperature 97.4 F 01/09/18 12:00 Pulse Rate 88 01/09/18 12:00 Respiratory Rate 16 01/09/18 04:00 Blood Pressure 140/60 H 01/09/18 12:00 Pulse Oximetry 98 01/09/18 12:00 Narrative: Generic Name Dose Route Start Last Admin Trade Name Freq PRN Reason Stop Dose Admin Acetaminophen 650 mg 01/07/18 13:57 Tylenol PO Q5H PRN Discomfort Acyclovir 400 mg 01/07/18 21:00 01/09/18 09:29 Zovirax 200 Mg PO 400 mg BID ELLIOT Administration Bisacodyl 10 mg 01/07/18 13:56 Dulcolax RECTALLY DAILY PRN Constipation Calcium/Vitamin D 1 tab 01/07/18 21:00 01/09/18 09:29 Caltrate + D PO 1 tab BID ELLIOT Administration Levofloxacin 750 mg 01/09/18 06:30 01/09/18 06:40 Levaquin PO 750 mg ACB ELLIOT Administration Magnesium Hydroxide 30 ml 01/07/18 13:56 Mom PO DAILY PRN Constipation Magnesium Oxide 400 mg 01/07/18 12:28 01/09/18 09:30 Magox PO 400 mg BID ELLIOT Administration Metoclopramide HCl 10 mg 01/07/18 10:31 01/07/18 18:25 Reglan IVP 10 mg Q6H PRN Administration Nystatin 5 ml 01/08/18 13:00 01/09/18 09:30 Mycostatin PO 01/18/18 12:59 5 ml QID ELLIOT Administration Ondansetron HCl 4 mg 01/07/18 10:31 Zofran IVP Q6H PRN Nausea &/or vomiting Oxycodone/Acetaminophen 1 tab 01/07/18 15:00 Percocet 5/325 PO PRN PRN Polyethylene Glycol 17 gm 01/07/18 13:56 Miralax PO DAILY PRN Constipation Potassium Chloride 20 meq 01/08/18 08:00 01/09/18 09:29 Micro-K 10 Meq Capsule PO 20 meq WB ELLIOT Administration Sodium Chloride 500 ml 01/07/18 10:39 01/07/18 16:17 Normal Saline IV 500 ml PRN PRN Administration Sodium Chloride 10 - 80 ml 01/07/18 10:31 01/09/18 06:42 Iv Flush IV 50 ml PRN PRN Administration Flushing Tbo-Filgrastim 300 mcg 01/07/18 21:15 01/08/18 22:22 Granix SQ 300 mcg Q24H ELLIOT Administration Discontinued Medications Generic Name Dose Route Start Last Admin Trade Name Freq PRN Reason Stop Dose Admin Bumetanide 1 mg 01/07/18 18:37 01/07/18 18:57 Bumex 1 Mg/4 Ml Inj. IVP 01/07/18 18:38 1 mg O ONE Administration Calcium Carbonate 500 mg 01/09/18 16:35 01/09/18 16:38 Tums PO 01/09/18 16:36 500 mg O ONE Administration Aztreonam 1 g/ Sodium Chloride 100 mls @ 100 mls/hr 01/07/18 10:45 01/08/18 09:01 IV Infused Q6H ELLIOT Infusion Sodium Chloride 500 mls @ 1,000 mls/hr 01/07/18 10:31 01/07/18 11:15 Normal Saline IV 01/07/18 11:00 Not Given .Q30M ONE Levofloxacin/Dextrose 750 mg in 150 mls @ 100 mls/hr 01/07/18 11:30 01/08/18 13:30 Levaquin 750 Mg Premix IV Infused Q24H ELLIOT Infusion Vancomycin HCl 1,000 mg/ 500 mls @ 250 mls/hr 01/07/18 10:31 01/07/18 12:37 Sodium Chloride IV 01/07/18 10:32 Not Given O ONE Sodium Chloride 1,000 mls @ 130 mls/hr 01/07/18 12:30 01/07/18 18:54 Normal Saline IV Infused .Q7H42M ELLIOT Infusion Vancomycin HCl 1,500 mg/ 500 mls @ 250 mls/hr 01/07/18 13:00 01/07/18 18:14 Sodium Chloride IV 01/07/18 14:59 Infused 1300 ELLIOT Infusion Vancomycin HCl 1,250 mg/ 250 mls @ 200 mls/hr 01/08/18 03:00 01/08/18 04:28 Sodium Chloride IV Infused Q18H ELLIOT Infusion Magnesium Sulfate/Dextrose 1 gm in 100 mls @ 100 mls/hr 01/07/18 13:56 18:57 Mag Sulf 1gm Premix IV 01/07/18 14:55 100 mls/hr O ONE Administration Potassium Chloride 10 meq in 100 mls @ 100 mls/hr 01/08/18 05:15 01/08/18 07: 30 Potassium Chloride Premix IV 01/09/18 09:09 Infused Q6H ELLIOT Infusion Potassium Chloride 10 meq in 100 mls @ 100 mls/hr 01/08/18 09:47 01/08/18 14: 57 Potassium Chloride Premix IV 01/08/18 12:46 Infused Q1H ELLIOT Infusion Potassium Phosphate 20 mmol/ 506.6667 mls @ 100 mls/hr 01/09/18 10:15 10:51 Sodium Chloride IV 01/09/18 15:20 100 mls/hr .Q5H4M ELLIOT Administration Non-Formulary Medication 2 cap 01/08/18 09:00 Lenalidomide [Revlimid] PO DAILY ELLIOT Oxycodone/Acetaminophen 1 tab 01/07/18 12:30 01/07/18 14:29 Percocet 5/325 PO Not Given Q6H ELLIOT Potassium Chloride 20 meq 01/07/18 12:28 01/08/18 14:58 K-Dur 20 Meq Tablet PO Not Given BIDWM ELLIOT Potassium Chloride 20 meq 01/08/18 19:37 01/08/18 20:42 K-Dur 20 Meq Tablet PO 01/08/18 19:38 20 meq ONCE ONE Administration Sodium Chloride 500 ml 01/07/18 17:17 Normal Saline IV PRN PRN Vancomycin HCl 1 each 01/07/18 10:31 01/07/18 11:15 Pharmacy Consult - Vancomycin 01/07/18 10:32 1 each O ONE Administration - Constitutional mild distress, well nourished, well developed - Routine HEENT Exam Head: Present: normocephalic Eye: Present: EOMI ENT: Present: mucous membranes dry - Routine Neck Exam Present: supple. Absent: lymphadenopathy - Routine Respiratory Exam Present: CTA bilaterally. Absent: wheezes, crackles - Routine Cardiovascular Exam Present: RRR, no murmur - Routine Abdominal Exam Present: soft, non tender. Absent: mass - Routine Extremities Exam Present: no edema, full ROM - Routine Back/Spine/Pelvis Exam Back/Spine: Absent: vertebral tenderness - Routine Skin Exam Present: intact, dry. Absent: rash - Routine Neurological Exam Present: alert, oriented X3, moving all extremities - Routine Psychiatric Exam Present: normal affect, cooperative Oncology Results - Labs CBC & Chem 7: 01/09/18 04:12 01/09/18 04:12 Labs: Short CBC 01/09/18 Range/Units 04:12 WBC 0.5 L* (4.5-11.0) T/MM3 Hgb 7.2 L (12-16) GM/DL Hct 21.9 L (36-46) % Plt Count 17 L* (130-400) T/MM3 BMP 01/09/18 04:12 Sodium 136 Potassium 3.4 L Chloride 107 Carbon Dioxide 23 BUN 15.0 Creatinine 0.7 Glucose 92 Calcium 7.2 L Liver Function 01/09/18 Range/Units 04:12 Albumin 2.2 L (3.5-5.0) g/dL Assessment and Plan Assessment and Plan: 1. Syncopal episode while walking in the office 01/07 with associated hypotension. Subjectively feeling better, single episode of weakness today, 02/19 but no syncope. 2. Multiple myeloma on Darzalex, Revlimid and dexamethasone. Treatment currently on hold 3. Leukopenia secondary to treatment. WBC 500 on 01/08/18. WBC 500 on , ANC 0.2. Continue GSF support 4. Anemia. Hemoglobin 5.4 on 01/07/18. This is declined from 7.9 on 01/03/18 after 2 unit packed cells. 01/09/18 Hemoglobin is 7.2, currently receiving 1 unit packed cells. CBC will be repeated posttransfusion 5. Thrombocytopenia. Platelets of 6000 down from 10,000 on 01/03/18 after 1 unit of packed red blood cells. She received 2 units of platelets on 01/07/18. Platelets on 01/08/18 are 26K, platelets on 01/09/18 are 17 K. Continue to follow closely. 6. Hyperbilirubinemia. Bilirubin 2.2 on 01/08/18. Probably related to transfusion. Plan Active listened. Encouraged take one day at a time. Offered discussion/talk with roll picker/clergy; considering but declines at this time. Continue supportive care. Discussed with Dr. Rahman; requested add bilirubin when repeat CBC following transfusion. - Time Spent With Patient Total time spent is greater than 50% in coordination of care (as documented) at patient's floor/unit and/or counseling patient: 25 - 35 minutes <Luis Gutierrez - Last Filed: 01/09/18 18:28> Exam Vital signs: Temperature 97.4 F 01/09/18 12:00 Pulse Rate 88 01/09/18 12:00 Respiratory Rate 18 01/09/18 13:46 Blood Pressure 140/60 H 01/09/18 12:00 Pulse Oximetry 98 01/09/18 12:00 Oncology Results - Labs CBC & Chem 7: 01/09/18 04:12 01/09/18 04:12 Labs: Short CBC 01/09/18 Range/Units 04:12 WBC 0.5 L* (4.5-11.0) T/MM3 Hgb 7.2 L (12-16) GM/DL Hct 21.9 L (36-46) % Plt Count 17 L* (130-400) T/MM3 BMP 01/09/18 04:12 Sodium 136 Potassium 3.4 L Chloride 107 Carbon Dioxide 23 BUN 15.0 Creatinine 0.7 Glucose 92 Calcium 7.2 L Liver Function 01/09/18 Range/Units 04:12 Albumin 2.2 L (3.5-5.0) g/dL Assessment and Plan Assessment and Plan: Patient examined, chart reviewed, I participated in the development of the plan of care this patient. Agree with documentation by Kell Lott. Discussed with Dr. Rahman. Hemoglobin had dropped to 7.2 and transfusion given today. Platelets are 17,000 and would transfuse only with bleeding or less than 10,000 platelets. Continue G-CSF. - Time Spent With Patient Total time spent is greater than 50% in coordination of care (as documented) at patient's floor/unit and/or counseling patient:
[2018-01-09] MEDS ORDERED: FUROSEMIDE 20 MG/2 ML INJECTION IVP ONE (19:00)
[2018-01-10] MEDS: LEVOFLOXACIN 750 MG TABLET PO SCH (06:02)
[2018-01-10] MEDS: Oxycodone/Acetaminophen 5/325 1 TAB PO PRN ×3 (08:10→18:02)
[2018-01-10] MEDS: ACYCLOVIR 200 MG CAPSULE PO SCH ×2 (08:31→21:57)
[2018-01-10] MEDS: CALCIUM 600 + VIT D 400 TABLET PO SCH ×2 (08:32→21:57)
[2018-01-10] MEDS: MAGNESIUM OXIDE 400 MG TABLET PO SCH ×2 (08:33→21:57)
[2018-01-10] MEDS: NYSTATIN 500,000 units/5 ml ORAL LIQUID PO SCH ×4 (08:33→21:58)
--- NOTE | 2018-01-10 12:04 | Progress Note ---
- Date 01/10/18 Subjective: Doris is seen today in follow up. She is feeling much better. Weight is down almost 10kg in the last 48 hours. Had > 3L output post Lasix yesterday. Is eating well, is getting up. Reports she is very motivated to get better and go home. Her is feeling better, so she is encouraged by that as well. RN reports that a new Type and Screen is needed today and requests order. No other acute concerns are reported. Objective Vital signs: Temperature 98.4 F 01/10/18 04:59 Pulse Rate 78 01/10/18 08:00 Respiratory Rate 18 01/10/18 08:00 Blood Pressure 119/69 01/10/18 08:00 Pulse Oximetry 99 01/10/18 08:00 Height/Weight/BMI: Height 1.57 m Weight 59.8 kg Body Mass Index 24.6 Comments: Gen: AAO x 3. Very good humor. Appears to be feeling well. Neck: Supple. CV: S1S2. RRR. No edema. Lungs: CTAB. Diminished left lung field. No crackles or wheezes. Abd: Soft, NT, ND, Active x 4 quadrants. Ext: No E/C/C. Skin: Warm. Mild pallor. Brisk cap refill. Results - Labs CBC & Chem 7: 01/10/18 18:14 01/10/18 04:55 Assessment and Plan (1) Hypotension Current visit: Yes Status: Acute (2) Near syncope Current visit: Yes Status: Acute Assessment and Plan: Assessment Near syncope Pancytopenia (severe neutropenia, anemia, thrombocytopenia) Volume overload, posttransfusion Hypotension - resolved (Underlying HTN) Hypomagnesemia (POA) Hypokalemia (POA) HTN Moderate Protein Calorie Malnutrition Rule out sepsis - at time of admission, she had 3 SIRS criteria of HR >90, tachypnea, and leukopenia without identified infectious source Small left pleural effusion Multiple myeloma Thrush-01/08/18 Hypophosphatemia-01/09/18 Plan: 01/10/18 Overall, improving. Appears hemodynamically stable despite very large volume diuresis. No reports of dizziness or weakness. Pancytopenia- neutropenic precautions ongoing. To get platelet transfusion today. Continue empiric levaquin therapy. Replacing Mag/Phos- slow improvement. Loose stools may worsen on high dose Mag replacement. Could consider single Mag Sulfate bolus IV if needed. Eating well and overall feeling better. Monitor labs closely. She is motivated to return home soon. DVT Prophylaxis: SCD's Resuscitation Status: Full Code - Physician Narrative Physician: Eula Rahman MD Narrative: Date: 01/10/18 Time: 2234 I have independently evaluated and examined this patient. I reviewed the chart, the patient's history, and the MUTUEL CLERK/PA's documented findings as above. We discussed and formulated the assessment and plan as above with additions as below: Doris reports improved energy today compared to yesterday morning and that her appetite is good and she is eating 100% of her meals. No bleeding reported. Respirations are nonlabored with good airflow and breath sounds are clear Trace edema at the ankles bilaterally ANC 210, significant eosinophilia with 28-44% eosinophils noted the past 3 days. Posttransfusion platelet count 21K Eosinophilia discussed with Dr. Gutierrez-has been noted to lesser degree over the past 3 months. Continue to monitor counts; PT working with patient. Approaching discharge. Hospital Course Summary Disclaimer: The visit summary below is not to be considered part of the above Progress Note. Hospital Course: 01/07/18 Admit to CCU, inpatient status. Neutropenic precautions implemented. PRBC x2 units ordered. Platelet packs x2. Consult Dr. Gutierrez. Oncologist: Dr. Ann. Start vancomycin (per pharm), levofloxacin, aztreonam until sepsis/infectious etiology can be ruled out. Follow results of BC. BP improved after 500 mL bolus VENDING MACHINE HOST/HOSTESS. Start NS at 130 mL/hr & hold antiHTN meds. Replace K and mg PO - recheck in am. Consult CM for discharge planning - her sig other also is ill with cancer; sister is a spout worker and she is planning on sx soon herself. May need HH. Advanced directive info being faxed over. Full code status. 01/08/18 Hemodynamically improved today although weakness persists. PT/OT consults. Marked neutropenia-ANC 80. No fever and tachypnea/tachycardia have subsided with stabilization of hemoglobin. Blood cultures negative overnight. -Vancomycin and aztreonam discontinued; continue Levaquin orally for prophylaxis at present. Will discuss anticipated duration of neutropenia with oncology. Repeat CBC this afternoon, hemoglobin has fluctuated somewhat since transfusion of 2 units PRBCs yesterday; platelet count 6-61-41K--> may need platelets again in the next 1-2 days. Ongoing potassium replacement IV this morning; repeat electrolytes this afternoon to determine if adequately replaced. Probable thrush-nystatin suspension initiated. 01/09/18 Hemodynamically improved today although weakness today corresponding to drop in hemoglobin. Transfuse 1 unit packed red blood cells today. Platelet count dropping-reassess with post transfusion hemoglobin; no evidence of bleeding at present-platelet pack if count drops to 10 or below. Marked neutropenia but ANC rebounding slightly today to 230. No fever and tachypnea/tachycardia have subsided with stabilization of hemoglobin. Blood cultures remain negative at 48 hours. Potassium and phosphorus replaced IV this morning; reassess tomorrow. Magnesium borderline-increased supplementation to 800 mg twice a day. 01/10/18 Overall, improving. Appears hemodynamically stable despite very large volume diuresis. No reports of dizziness or weakness. Pancytopenia- neutropenic precautions ongoing. To get platelet transfusion today. Continue empiric levaquin therapy. Replacing Mag/Phos- slow improvement. Loose stools may worsen on high dose Mag replacement. Could consider single Mag Sulfate bolus IV if needed. Eating well and overall feeling better. Monitor labs closely. She is motivated to return home soon.
--- NOTE | 2018-01-10 18:59 | Progress Note ---
Oncology Subjective Feeling better. Less dizzy. Ambulating. Platelets were 10,000 earlier today and got 1 unit of platelets with a bump to 21,000 Exam Vital signs: Temperature 97.2 F 01/10/18 12:44 Pulse Rate 83 01/10/18 12:44 Respiratory Rate 18 01/10/18 12:44 Blood Pressure 128/67 01/10/18 12:44 Pulse Oximetry 99 01/10/18 12:44 - Constitutional no acute distress, thin - Routine HEENT Exam Head: Present: normocephalic Eye: Present: EOMI, PERRL ENT: Present: mucous membranes moist - Routine Neck Exam Present: supple. Absent: lymphadenopathy - Routine Respiratory Exam Present: CTA bilaterally - Routine Cardiovascular Exam Present: RRR, no murmur - Routine Abdominal Exam Present: soft, non distended, non tender - Routine Extremities Exam Present: edema. Absent: cyanosis, clubbing - Routine Skin Exam Present: dry, warm - Routine Neurological Exam Present: alert, CN II-XII intact - Routine Psychiatric Exam Present: normal affect, anxious Oncology Results - Labs CBC & Chem 7: 01/10/18 18:14 01/10/18 04:55 Labs: Short CBC 01/09/18 01/10/18 01/10/18 Range/Units 20:08 04:55 18:14 WBC 0.7 L* 0.7 L* (4.5-11.0) T/MM3 Hgb 9.4 L D 8.3 L D (12-16) GM/DL Hct 26.6 L D 24.2 L (36-46) % Plt Count 12 L* 10 L* 21 L* D (130-400) T/MM3 BMP 01/10/18 04:55 Sodium 136 Potassium 3.7 Chloride 106 Carbon Dioxide 23 BUN 17.0 Creatinine 0.6 L Glucose 95 Calcium 7.1 L Liver Function 01/10/18 01/10/18 Range/Units 04:55 05:00 Total Bilirubin 1.50 H (0.20-1.30) MG/DL AST 6 L (14-36) U/L ALT 8 (1-35) U/L Alkaline Phosphatase 81 (38-126) U/L Albumin 2.1 L 2.0 L (3.5-5.0) g/dL Assessment and Plan Assessment and Plan: Multiple myeloma, recurrent currently on Darzalex Pomalyst. Pancytopenia secondary to disease and treatment. WBC today 700 with platelets of 10 K. Currently status post platelet transfusion and is 21K. Syncope with probable empiric neutropenic sepsis. Currently improved Recommendations: Continue Granix Continue supportive care Increase ambulation - Time Spent With Patient Total time spent is greater than 50% in coordination of care (as documented) at patient's floor/unit and/or counseling patient: less than 15 minutes
[2018-01-11] MEDS: LEVOFLOXACIN 750 MG TABLET PO SCH (06:33)
[2018-01-11] MEDS: CALCIUM 600 + VIT D 400 TABLET PO SCH ×2 (09:33→21:52)
[2018-01-11] MEDS: NYSTATIN 500,000 units/5 ml ORAL LIQUID PO SCH ×4 (09:34→21:52)
[2018-01-11] MEDS: MAGNESIUM OXIDE 400 MG TABLET PO SCH ×2 (09:34→21:52)
[2018-01-11] MEDS: ACYCLOVIR 200 MG CAPSULE PO SCH ×2 (09:34→21:52)
--- NOTE | 2018-01-11 11:34 | Progress Note ---
Oncology Subjective Patient feeling well. Had difficulty last night with having to urinate frequently. Otherwise doing well. PICC line dressing changes needed. Exam Vital signs: Temperature 96.9 F 01/11/18 07:55 Pulse Rate 83 01/11/18 08:00 Respiratory Rate 20 01/11/18 07:55 Blood Pressure 147/67 H 01/11/18 07:55 Pulse Oximetry 98 01/11/18 07:55 - Constitutional no acute distress, thin - Routine HEENT Exam Head: Present: normocephalic Eye: Present: EOMI, PERRL ENT: Present: mucous membranes moist - Routine Neck Exam Present: supple. Absent: lymphadenopathy - Routine Respiratory Exam Present: CTA bilaterally. Absent: rales - Routine Cardiovascular Exam Present: RRR, no murmur - Routine Abdominal Exam Present: soft, non distended, non tender. Absent: organomegaly - Routine Extremities Exam Present: cyanosis, clubbing, edema (1-2+) - Routine Skin Exam Present: dry, warm - Routine Neurological Exam Present: alert, CN II-XII intact - Routine Psychiatric Exam Present: normal affect Oncology Results - Labs CBC & Chem 7: 01/11/18 05:03 01/11/18 05:03 Labs: Short CBC 01/10/18 01/11/18 Range/Units 18:14 05:03 WBC 0.9 L* (4.5-11.0) T/MM3 Hgb 8.5 L (12-16) GM/DL Hct 25.2 L (36-46) % Plt Count 21 L* D 17 L* (130-400) T/MM3 BMP 01/11/18 05:03 Sodium 139 Potassium 4.5 D Chloride 107 Carbon Dioxide 24 BUN 18.0 H Creatinine 0.7 Glucose 97 Calcium 7.8 L D Liver Function 01/11/18 Range/Units 05:03 Total Bilirubin 1.30 (0.20-1.30) MG/DL AST 6 L (14-36) U/L ALT 8 (1-35) U/L Alkaline Phosphatase 86 (38-126) U/L Albumin 2.3 L (3.5-5.0) g/dL - Impressions Laboratory Tests 01/08/18 01/08/18 01/09/18 04:25 04:25 04:12 WBC Hgb Hct Plt Count Neutrophils % (Manual) 20.0 L Lymphocytes % (Manual) 48.0 H 44.0 Eosinophils % (Manual) 28.0 H Eosinophils # (Manual) 0.1 Total Bilirubin 2.20 H Unconjugated Bilirubin Alkaline Phosphatase Total Protein Albumin 01/10/18 01/10/18 01/11/18 04:55 05:00 05:03 WBC 0.9 L* Hgb 8.5 L Hct 25.2 L Plt Count 17 L* Neutrophils % (Manual) 28.0 L 34.0 Lymphocytes % (Manual) 36.0 39.0 Eosinophils % (Manual) 32.0 H 25.0 H Eosinophils # (Manual) 0.2 0.2 Total Bilirubin 1.50 H Unconjugated Bilirubin 1.20 H Alkaline Phosphatase Total Protein Albumin 01/11/18 05:03 WBC Hgb Hct Plt Count Neutrophils % (Manual) Lymphocytes % (Manual) Eosinophils % (Manual) Eosinophils # (Manual) Total Bilirubin 1.30 Unconjugated Bilirubin Alkaline Phosphatase 86 Total Protein 4.4 L Albumin 2.3 L Assessment and Plan Assessment and Plan: Multiple myeloma, recurrent currently on Darzalex Pomalyst. Therapy held this week secondary to severe neutropenia Pancytopenia secondary to disease and treatment. Counts are improving. WBC has gone from 500 on 706/78 and 900 on 01/11. Absolute neutrophil count has gone from [phone]. Platelets today are 17,000 with a hemoglobin of 8.5. We' ll continue supportive care. Syncope with probable empiric neutropenic sepsis. Currently improved Recommendations: Continue Granix Continue supportive care Increase ambulation Change PICC line dressing - Time Spent With Patient Total time spent is greater than 50% in coordination of care (as documented) at patient's floor/unit and/or counseling patient: less than 15 minutes
--- NOTE | 2018-01-11 16:45 | Progress Note ---
- Date 01/11/18 Subjective: Doris reports having minor exertional dyspnea after ambulating in the halls and that her legs felt a little shaky with increased activity otherwise feels well. She has no dyspnea at rest and is tolerating ambulating in the room without difficulty. She denied chest pain or palpitations. Reports diarrhea has resolved and that she is voiding without difficulty. She's had no further fevers and overall feels encouraged about progress being made. Objective Vital signs: Temperature 97.2 F 01/11/18 15:10 Pulse Rate 86 01/11/18 15:10 Respiratory Rate 18 01/11/18 15:10 Blood Pressure 142/58 H 01/11/18 15:10 Pulse Oximetry 100 -RA 01/11/18 15:10 NAD, alert, fluent speech EOMI, conjunctiva clear, sclera anicteric, oropharynx with faint thrush on tongue Respirations nonlabored, good airflow, breath sounds clear Regular rhythm, S1-S2 Abdomen soft, nontender, bowel sounds present Extremities without edema Moving all extremities well Rhythm: Normal Sinus Rhythm (telemetry strips reviewed by myself) Height/Weight/BMI: Height 1.57 m Weight 58.3 kg Body Mass Index 24.6 Results - Labs CBC & Chem 7: 01/11/18 05:03 01/11/18 05:03 Labs: S34 B2 L39 E25; ANC 324 Assessment and Plan (1) Hypotension Current visit: Yes Status: Acute (2) Near syncope Current visit: Yes Status: Acute Assessment and Plan: Assessment Near syncope Pancytopenia (severe neutropenia, anemia, thrombocytopenia) Volume overload, posttransfusion Hypotension - resolved (Underlying HTN) Hypomagnesemia (POA) Hypokalemia (POA) HTN Moderate Protein Calorie Malnutrition Rule out sepsis - at time of admission, she had 3 SIRS criteria of HR >90, tachypnea, and leukopenia without identified infectious source Small left pleural effusion Multiple myeloma Thrush-01/08/18 Hypophosphatemia-01/09/18 Plan: Doing well, white count and ANC slowly improving. Hemoglobin relatively stable, platelet count drifting slowly-reassess all in a.m. No further lightheadedness or near syncope. Continue therapy/strengthening. Phosphorus slowly improving with improved oral intake, other electrolytes stable. Decrease oral magnesium supplement. Approaching discharge. Discontinue telemetry-consistently sinus rhythm. Discussed with Dr. Gutierrez earlier. DVT Prophylaxis: SCD's Resuscitation Status: Full Code - Physician Narrative Narrative: Date: 01/11/18 Time: 1641 Hospital Course Summary Disclaimer: The visit summary below is not to be considered part of the above Progress Note. Hospital Course: 01/07/18 Admit to CCU, inpatient status. Neutropenic precautions implemented. PRBC x2 units ordered. Platelet packs x2. Consult Dr. Gutierrez. Oncologist: Dr. Ann. Start vancomycin (per pharm), levofloxacin, aztreonam until sepsis/infectious etiology can be ruled out. Follow results of BC. BP improved after 500 mL bolus SHELLFISH SORTER. Start NS at 130 mL/hr & hold antiHTN meds. Replace K and mg PO - recheck in am. Consult CM for discharge planning - her sig other also is ill with cancer; sister is a psychology instructor and she is planning on sx soon herself. May need HH. Advanced directive info being faxed over. Full code status. 01/08/18 Hemodynamically improved today although weakness persists. PT/OT consults. Marked neutropenia-ANC 80. No fever and tachypnea/tachycardia have subsided with stabilization of hemoglobin. Blood cultures negative overnight. -Vancomycin and aztreonam discontinued; continue Levaquin orally for prophylaxis at present. Will discuss anticipated duration of neutropenia with oncology. Repeat CBC this afternoon, hemoglobin has fluctuated somewhat since transfusion of 2 units PRBCs yesterday; platelet count [id number]--> may need platelets again in the next 1-2 days. Ongoing potassium replacement IV this morning; repeat electrolytes this afternoon to determine if adequately replaced. Probable thrush-nystatin suspension initiated. 01/09/18 Hemodynamically improved today although weakness today corresponding to drop in hemoglobin. Transfuse 1 unit packed red blood cells today. Platelet count dropping-reassess with post transfusion hemoglobin; no evidence of bleeding at present-platelet pack if count drops to 10 or below. Marked neutropenia but ANC rebounding slightly today to 230. No fever and tachypnea/tachycardia have subsided with stabilization of hemoglobin. Blood cultures remain negative at 48 hours. Potassium and phosphorus replaced IV this morning; reassess tomorrow. Magnesium borderline-increased supplementation to 800 mg twice a day. 01/10/18 Overall, improving. Appears hemodynamically stable despite very large volume diuresis. No reports of dizziness or weakness. Pancytopenia- neutropenic precautions ongoing. To get platelet transfusion today. Continue empiric levaquin therapy. Replacing Mag/Phos- slow improvement. Loose stools may worsen on high dose Mag replacement. Could consider single Mag Sulfate bolus IV if needed. Eating well and overall feeling better. Monitor labs closely. She is motivated to return home soon. 01/10/18 Doing well, white count and ANC slowly improving. Hemoglobin relatively stable, platelet count drifting slowly-reassess all in a.m. No further lightheadedness or near syncope. Continue therapy/strengthening. Phosphorus slowly improving with improved oral intake, other electrolytes stable. Decrease oral magnesium supplement. Approaching discharge. Discontinue telemetry-consistently sinus rhythm.
[2018-01-12 01:14] VITALS: RESP 16
[2018-01-12] MEDS: LEVOFLOXACIN 750 MG TABLET PO SCH (06:09)
[2018-01-12] MEDS: NYSTATIN 500,000 units/5 ml ORAL LIQUID PO SCH ×2 (08:54→13:06)
[2018-01-12] MEDS: ACYCLOVIR 200 MG CAPSULE PO SCH (08:54)
[2018-01-12] MEDS: CALCIUM 600 + VIT D 400 TABLET PO SCH (08:54)
[2018-01-12] MEDS: MAGNESIUM OXIDE 400 MG TABLET PO SCH (08:54)
[2018-01-12] MEDS: SALINE FLUSH 10ml SYRINGE IV PRN ×2 (08:54→15:06)
[2018-01-12] MEDS ORDERED: FUROSEMIDE 20 MG/2 ML INJECTION IVP ONE (09:00)
[2018-01-12] MEDS: NS FLUSH BAG 500ml IV PRN (11:35)
--- NOTE | 2018-01-12 13:39 | Progress Note ---
Oncology Subjective Feeling well today. Platelets 8. WBC 0.9 with 200 ANC. Doing well otherwise. Exam Vital signs: Temperature 96.8 F 01/12/18 11:06 Pulse Rate 82 01/12/18 11:06 Respiratory Rate 16 01/12/18 11:06 Blood Pressure 120/59 01/12/18 11:06 Pulse Oximetry 98 01/12/18 11:06 - Constitutional no acute distress, thin - Routine HEENT Exam Head: Present: normocephalic Eye: Present: EOMI, PERRL ENT: Present: mucous membranes moist - Routine Respiratory Exam Present: CTA bilaterally. Absent: rales - Routine Cardiovascular Exam Present: RRR, no murmur - Routine Abdominal Exam Present: soft, non distended, non tender - Routine Extremities Exam Present: edema (1+). Absent: cyanosis, clubbing - Routine Skin Exam Present: dry, warm, ecchymosis - Routine Neurological Exam Present: alert, CN II-XII intact - Routine Psychiatric Exam Present: normal affect Oncology Results - Labs CBC & Chem 7: 01/12/18 04:21 01/12/18 04:21 Labs: Short CBC 01/12/18 Range/Units 04:21 WBC 0.9 L* (4.5-11.0) T/MM3 Hgb 7.6 L (12-16) GM/DL Hct 22.9 L (36-46) % Plt Count 8 L* D (130-400) T/MM3 [facility] 01/12/18 04:21 Sodium 138 Potassium 4.0 Chloride 108 H Carbon Dioxide 24 BUN 19.0 H Creatinine 0.7 Glucose 102 Calcium 8.3 L Assessment and Plan Assessment and Plan: Multiple myeloma, recurrent currently on Darzalex Pomalyst. Therapy held this week secondary to severe neutropenia Pancytopenia secondary to disease and treatment. Counts are improving. WBC has gone from 500 on 706/78 and 900 on 01/11. Absolute neutrophil count has gone from [phone]. Platelets today are 8000, transfuse with a hemoglobin of 7.6, transfuse. We'll continue supportive care. Syncope with probable empiric neutropenic sepsis. Currently improved Recommendations: Continue Granix Continue supportive care Increase ambulation G-CSF in the office on Saturday. Follow-up on Saturday - Time Spent With Patient Total time spent is greater than 50% in coordination of care (as documented) at patient's floor/unit and/or counseling patient: 25 - 35 minutes
[2018-01-12 16:45] VITALS: BP 126/68; PULSE 103; TEMP 95.4; O2SAT 100
--- NOTE | 2018-01-12 17:58 | Discharge Summary ---
Discharge Information Date of admission: 01/07/18 10:38 Anticipated date of discharge: 01/12/18 Attending Physician: Eula Rahman MD Primary care physician: Rahul Hummel DO Consults: Consulting Provider: Luis Gutierrez Reason For Exam: multiple myeloma - Discharge Diagnosis (1) Hypotension Status: Acute (2) Near syncope Status: Acute Hypotension Near syncope Pancytopenia (severe neutropenia, anemia, thrombocytopenia) Volume overload, posttransfusion Hypotension - resolved (Underlying HTN) Hypomagnesemia (POA) Hypokalemia (POA) HTN Moderate Protein Calorie Malnutrition Rule out sepsis -ruled out Small left pleural effusion Multiple myeloma Thrush Hypophosphatemia Left pleural effusion - Procedures Procedures: Transfused 5 units leuko-poor, irradiated packed red blood cells and 4 leuko- poor, irradiated platelet packs - Laboratory Labs: Pre-albumin 9.5 on 01/07/18; bilirubin 2.2 on .6 with subsequent normalization; this was primarily unconjugated. Other liver enzymes were consistently normal, 01/12/18 17:09 01/12/18 04:21 - Microbiology Cultures 2 and urine culture obtained in the office on 01/07/18 were all negative. - Radiology Radiology: Portable chest x-ray on 01/07/18: Increasing small left pleural effusion with left basilar compressive atelectasis. Prior right pleural effusion has decreased or resolved. Right PICC line in place with the tip projecting over the superior SVC. No pneumothorax. Right lung is clear. Heart size and mediastinal contours are stable. Pulmonary vascularity is stable. Impression: Increasing small left effusion. ----- PA and lateral chest x-ray on continues to show pleural effusion on the left without other abnormalities-formal report pending; pleural effusion appears larger than on 01/07/18. History of Present Illness HPI: Doris Phelps is a 72 year old woman who was directly admitted from Dr. Gutierrez's office after a near-syncopal event. She has a hx of multiple myeloma, diagnosed initially in January, with recent recurrence discovered via bone marrow biopsy in Dec, 2017. She has been weak and fatigued and has required recent transfusions of platelets and blood. When she arrived in the office, she stated that her legs became weak and she slid down the wall. She denied any preceding sx including chest pain, palpitations, dizziness/vertigo, dyspnea, nausea or diaphoresis. She wasn't sure if she lost consciousness or not -- staff who witnessed the event report that she did not lose consciousness. She recalls recognizing everyone immediately after this event and denies seizure-like activity, oral injury (ie biting tongue), or incontinence. She also denies any recent illnesses such as cough, sinus congestion/drainage, sore throat, abdominal pain, n/v/d, or dysuria. She denies fever but reports feeling chilled. She has had poor oral intake/anorexia for the last year and has lost 65 lbs since initially diagnoses. She has a hx of constipation but this is kept under control with a daily stool softener. She denies black/bloody stools. She occasionally has trouble swallowing, especially meat, but denies choking. She's noticed that she's bruising much easier now. She states that she voids frequently but this improved some after stopping her Lasix. She denies leg swelling but states that she has always had big ankles and earlier had some mild tenderness to her medial left ankle. She denies other joint pain/swelling. In the clinic, her BP was 87/64. She was given a 500 cc NS bolus. Labs showed severe anemia and thrombocytopenia (hgb of 5.4 and platelets of 6). In addition , WBC was only 0.7. Lactate and procalcitonin were negative. BC x2 were drawn and UA was negative for UTI. CXR showed small left effusion that was increasing in size with compressive atelectasis but a previously noted right effusion had resolved. Also, K and mag were both slightly low at 3.3 and 1.5. Objective Vital signs: Temperature 95.4 F L 01/12/18 16:44 Pulse Rate 103 H 01/12/18 16:44 Respiratory Rate 16 01/12/18 16:44 Blood Pressure 126/68 01/12/18 16:44 Pulse Oximetry 100 01/12/18 16:44 NAD, alert Conjunctiva clear, sclera anicteric, mild white plaque on tongue Respirations nonlabored, good airflow, breath sounds clear Regular rhythm, S1-S2 Abdomen soft, nontender, bowel sounds present Trace edema Rhythm: Normal Sinus Rhythm (telemetry strips reviewed by myself) Height/Weight/BMI: Height 1.57 m Weight 57.2 kg Body Mass Index 24.6 Hospital Course This is a general summary of the patient's hospital course. For more details refer to the complete medical record. Hospital course: Mrs Phelps admitted to the ICU due to marked anemia with near syncope. Fluids were continued and she was empirically started on triple antibiotics with vancomycin, levofloxacin, and aztreonam for possible sepsis in light of neutropenia. 2 units of packed red blood cells were transfused on the date of admission. She additionally received 2 platelet packs for thrombocytopenia. The patient was hemodynamically stable following admission and initial transfusions although hemoglobin fluctuated downward slowly and she require 3 additional transfusions throughout the hospitalization with a total of 5 units PRBCs prior to discharge. Similarly 2 additional platelet packs were given for total of 4 platelet packs. She remained neutropenic throughout but did not have fever and after blood cultures were negative for 48 hours IV antibiotics were discontinued and she was started on oral Levaquin for prophylaxis in the setting of neutropenia. She remained on prophylactic acyclovir per home regimen. Granix was given to stimulate white cell production throughout the hospital course with slow increase in total white count from 0.4 to 0.9 at discharge; ANC remains depressed and prophylactic antibiotics are continued at discharge. She was noted to have thrush several days into the hospitalization and nystatin suspension was initiated. Physical therapy was consulted and worked with the patient throughout the hospitalization with slow improvement in the patient's functional capacity. She is walking independently at discharge and blood pressure has been stable although home antihypertensives remain on hold to avoid recurrent hypotension. Potassium and magnesium required supplementation throughout the hospitalization. Patient experienced diarrhea early in the hospitalization but this resolved spontaneously and did not require interventions or suggest infectious diarrhea. Small pleural effusion was present on chest x-ray on admission with repeat film at discharge demonstrating small to moderate left-sided pleural effusion. This is asymptomatic and in patient is on room air with excellent oxygenation. On 01/12/18 the patient reported that she felt really good and denied dyspnea, nausea, or lightheadedness. Her appetite has improved significantly and she ate a full breakfast today. She received a unit of PRBCs and a platelet pack prior to discharge. She is to stop by the oncology office tomorrow for Granix injection and will be seen in the oncology office for repeat counts and examination on 01/14/18. She is stable for discharge at this time. Time spent with patient: discharge greater than 30 minutes Resuscitation Status: Full Code Discharge Plan - Discharge Disposition Discharge Date: 01/12/18 Disposition: Discharged Home, Self-Care *Condition: Stable Reason For Visit (Visit label in EMR): Hypotension, syncope, anemia, thrombocytopenia - Discharge Medications *Discharge Medications: New Levofloxacin [Levaquin] 500 mg PO DAILY #14 tab Magnesium Oxide [Magox] 400 mg PO BID #60 tab Nystatin Oral Liq. [Mycostatin] 5 ml PO QID #200 ml Continue Potassium Chloride 20 meq PO DAILY Zovirax (acyclovir) 400 mg tablet 400 mg PO BID tab calcium carbonate 600 mg (1,500 mg)-vitamin D3 400 unit tablet 1 tab PO BID Discontinued oxycodone-acetaminophen 5 mg-325 mg tablet 1 tab PO Q6H #30 tab lisinopril 20 mg tablet 20 mg PO DAILY Norvasc (amlodipine) 5 mg tablet 5 mg PO .COMPLEX #30 tab lenalidomide 10 mg capsule 2 cap PO DAILY 28 Days #28 - Discharge Packet/Instructions *Diet: Regular, minimize fresh fruits/vegetables while white count as low; add nutritional supplements like Ensure if needed. *Activity: As tolerate *Pain Management/Treatment: Tylenol as needed (follow package instructions) for pain medications previously prescribed by Dr. Ann or Dr. Gutierrez. *Wound Care: Not applicable Additional Instructions: 1. Continue to hold amlodipine and lisinopril; your blood pressures are better than at admission but still borderline for taking medications daily. Have blood pressure checked whenever you are in the oncology office to help determine when to resume your medicine. 2. Dr. Gutierrez asked that you come by the office sometime tomorrow afternoon for a shot to help increase your white count and keep office appointment on Saturday to have blood counts checked and see him. 3. Continue levofloxacin 500 mg daily to minimize risk of infections while your white count is low; Dr. Gutierrez can tell you when to discontinue the antibiotic. 4. Continue nystatin swish and spit while on antibiotics. 5. Continue magnesium oxide twice daily in conjunction with potassium once daily to avoid low electrolytes. 6. Continue to hold lenalindomide until instructed otherwise by oncology. 7. Prescriptions for levofloxacin, magnesium, and nystatin have been faxed to [facility] and should be available tomorrow morning. 8. You are at risk for infections while your blood counts are low sodium is best to avoid public areas with large groups of people which may exposure to to a variety of viral infections. *Expected Signs/Symptoms: Bruising or bleeding easily, lightheadedness with rapid movements, generalized weakness. *Notify Physician if: Fever, passing out, uncontrolled bleeding, confusion, or any symptoms that make you feel you have a new infection-pain or knee urinate, diarrhea, cough with green sputum, sinus pain/drainage. *During Business Hours Contact: Dr. Hummel or Dr. Gutierrez's office *After Business Hours Contact: Call [facility] at [phone] and ask that the on-call physician be paged for Dr. Hummel or Dr. Gutierrez *Pending Lab/Results: No Pending Lab - Referrals/Follow Up *Referrals/Follow Up: Luis Gutierrez MD [Physician] - (SATURDAY AT 1:15) - Patient Handouts Patient Handouts: Pancytopenia (GEN) - Dismissal Complete Discharge Instructions are:: Complete Physician Narrative - Narrative Attestation Narrative: Date: 01/12/18 Time: 1262
--- NOTE | 2018-01-13 08:35 | XRay Report ---
LOCATION OF DICTATION: [facility] EXAM: XR chest 2V HISTORY: pleural effusion COMPARISON: No prior studies available for comparison. FINDINGS: The heart size is normal. The mediastinal configuration is unremarkable. Small to moderate-sized left pleural effusion. There is no evidence for a pneumothorax. Mild to moderate spondylosis of the thoracic spine. IMPRESSION: 1. Small to moderate-sized left pleural effusion. 2. Right PICC line in place with the tip overlying the upper SVC. .
== END 2018-01-12 18:20 | disposition home or self-care (01) | DRG 315 ==
LOC: SUATTDRO 10:38 → CCU 10:38 → MED 01-08 14:34
PROVIDERS: ADMIT Hospitalist; ATTEND Internal Medicine

== ENCOUNTER 2018-01-27 08:29 | Inpatient (IN) ==
[2018-01-27] MEDS ORDERED: ALBUTEROL/IPRATROPIUM 2.5mg-0.5mg/3ml NEB IH ONE (08:46)
[2018-01-27] MEDS ORDERED: FUROSEMIDE 40 MG/4 ML INJECTION IVP ONE (08:46)
[2018-01-27] MEDS ORDERED: LEVOFLOXACIN PB 750 MG/150 ML BAG IV ONE (08:46)
--- NOTE | 2018-01-27 08:54 | Emergency Department Report ---
Asthma HPI - General Stated Complaint: Diff breathing Time Seen by Provider: 01/27/18 08:30 Source: patient, RN notes reviewed, old records reviewed, other (RN at [facility] Mode of arrival: ambulatory Limitations: no limitations - History of Present Illness HPI Narrative: 72yo woman presents to the ER for evaluation of dyspnea. Pt is being treated for MM; has not been able to take chemo for some time 2/2 illness and anemia/ thrombocytopenia. Pt had 2 units PRBCs over the weekend 2/2 anemia. Pt has a h/ o CHF, but does not appear to have had lasix following the blood. Is not currently on lasix. Yesterday, pts chronic dyspnea became precipitously worse. A nurse at [facility] directed the pt to the ER today for further eval/treatment. MD complaint: shortness of breath Onset (ago): hour(s) Severity: severe Context: other - Related Data Current Asthma Therapy: none Home Medications Medication Instructions Recorded Confirmed Zovirax (acyclovir) 400 mg tablet 400 mg PO BID tab 04/24/17 01/27/18 calcium carbonate 600 mg (1,500 1 tab PO BID 04/24/17 01/27/18 mg)-vitamin D3 400 unit tablet Allopurinol [Zyloprim] 300 mg PO DAILY 01/27/18 01/27/18 Lenalidomide [Revlimid] 20 mg PO DAILY 01/27/18 01/27/18 Lisinopril [Prinivil] 20 mg PO DAILY 01/27/18 01/27/18 Oxycodone HCl 5 mg PO Q4H PRN 01/27/18 01/27/18 Potassium Chloride 10 meq PO DAILY 01/27/18 01/27/18 Previous Rx's Medication Instructions Recorded Levofloxacin [Levaquin] 500 mg PO DAILY #14 tab 01/12/18 Magnesium Oxide [Magox] 400 mg PO BID #60 tab 01/12/18 Nystatin Oral Liq. [Mycostatin] 5 ml PO QID #200 ml 01/12/18 Allergies Allergy/AdvReac Type Severity Reaction Status Date / Time Penicillins Allergy Mild RASH Verified 01/07/18 11:09 Sulfa (Sulfonamide Allergy Mild RASH Verified 01/07/18 11:09 Antibiotics) KELFEX AdvReac Diarrhea Uncoded 01/27/18 13:44 Review of Systems All systems: reviewed and negative except as stated Constitutional: Reports: as per HPI, weakness, other (Dehydrated). Denies: fever, chills, weight change, night sweats Respiratory: Reports: as per HPI, dyspnea. Denies: cough, wheezes, hemoptysis, stridor PFS Patient Stated Medical History Cerebrovascular Accident No Meningitis No Parkinson's Disease No Angina No Cardiac Arrhythmia No Hypertension No Hypotension No Asthma Yes: childhood Gastroesophageal Reflux No Disease Hiatal Hernia No Ulcer No Hx Kidney Stones No Hx Renal Disease No Hx Urinary Tract Infection No Anemia Yes Blood Disorders Yes: multiple myloma 01/30/17 Other Musculoskeletal Yes: spontaneous fractures Clostridium Difficile No MRSA No Sepsis No Blood Transfusions Yes Post Menopausal Yes Clinic Medical History (Last Updated 01/08/18 @ 13:30 by Eula Rahman MD) Fracture of humerus, closed (Acute Medical) Right, s/p ORIF Dr. Marrero 2016 Multiple myeloma (Acute Medical) Hypertension (Chronic Medical) Medical History Updates: Multiple myeloma Surgical History: Tubal ligation. Right humerus ORIF Dr. Montemayor 2016 Family History: Family History (Last Updated 04/24/17 @ 09:28 by Dennise Myrick) Mother Non-Hodgkin lymphoma Father Heart disease Diabetes Family History Updates: Mother - at age 86 of NHL; also had breast cancer in her 70s. She also had high cholesteral; CAD; CABG x3; PVD. Father - diabetes ; needed leg amputation from diabetes; slow bone cancer that wasn't r/t to . of CHF, age 86. 1 sister (younger) - healthy - Social History Smoking status: Never smoker Substance use type: does not use Alcohol intake: never Alcohol intake frequency: does not drink Household members: significant other (He is ill with metastatic prostate cancer) Current occupational status: retired (age 64) Current residence: Apartment/Private Home Physical Exam - Limitations Limitations: no limitations - General General appearance: alert, in no apparent distress, cachectic - Normal Exams: Head:: Normocephalic without trauma Eyes:: Pupils are PERRLA w/ EOMI, No scleral icterus, irritation, or foreign bodies noted ENMT:: No facial trauma, nasal exudates, pharyngeal erythema, or exudates are noted Neck:: Full range of motion, without adenopathy Lymphatic:: No lymphadenopathy Musculoskeletal:: No tenderness, or deformity noted Integumentary:: No rashes, hives, or bruising noted Neurological:: Patient is alert, and oriented Psychiatric:: Patient exhibits, appropriate attention - Chest Chest inspection: Present: normal inspection, symmetric chest wall rise. Absent : tenderness, rash - Respiratory Respiratory exam: Present: accessory muscle use, other (Diminished in LLL). Absent: normal lung sounds bilaterally, respiratory distress, wheezes, stridor, prolonged expiratory phase, crackles - Cardiovascular Cardiovascular exam: Present: normal rhythm, tachycardia, normal heart sounds. Absent: regular rate, rubs, gallop, clicks Course - Consultations Consultation #1: Dr. Sanchez: Time: 11:27 Consultation #2: Hospitalist: Time: 11:39 Dyspnea - Differential Diagnosis Differential diagnosis: Likely: PE, Pneumonia, COPD exacerbation, Pulmonary edema systolic, Pulmonary edema dystolic, ARDS, Pneumothorax. Unlikely: Acute exacerbation, Status asthmaticus, Acute asthmatic bronchitis, Foreign body in trachea - Medical Records Attestation: I reviewed the patient's medical records. - Lab Data Attestation: I reviewed the patient's lab results. Result diagrams: 01/27/18 09:02 01/27/18 09:02 - Radiology Data Attestation: I reviewed the patient's radiology results. CXR: FINDINGS: Stable large left pleural effusion. The right lung remains clear. There is no pneumothorax. The cardiac silhouette is stable and the pulmonary vasculature is within normal limits. No mediastinal abnormality is present. Stable right-sided PICC line. IMPRESSION: Stable large left pleural effusion. CT-PA: IMPRESSION: 1. No evidence of pulmonary emboli. 2. Large left effusion with compressive atelectasis and obscuration of multiple known pleural-based metastasis. 3. Multiple new groundglass nodular lesions throughout the right lung with enlarging left anterior rib metastasis most consistent with neoplastic progression. 4. Stable enlarged pericardial lymph node. 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
[2018-01-27] MEDS: SALINE FLUSH 10ml SYRINGE IV PRN ×4 (09:00→18:31)
--- NOTE | 2018-01-27 09:33 | XRay Report ---
EXAM: XR chest 2V COMPARISON: Chest x-ray dated 01/12/2018. HISTORY: Dyspnea . FINDINGS: Stable large left pleural effusion. The right lung remains clear. There is no pneumothorax. The cardiac silhouette is stable and the pulmonary vasculature is within normal limits. No mediastinal abnormality is present. Stable right-sided PICC line. IMPRESSION: Stable large left pleural effusion. .
[2018-01-27] MEDS ORDERED: SALINE FLUSH 10ml SYRINGE ONE (10:20)
[2018-01-27] MEDS ORDERED: IOHEXOL 350mg/ml 75ml INJECTION ONE (10:20)
--- NOTE | 2018-01-27 11:21 | CT Scan Report ---
EXAM: CT angio pulm emboli HISTORY: Dyspnea; elevated d-Dimer COMPARISON: CT chest dated 12/13/2017 and chest x-ray dated 01/27/2018. PROCEDURE: CT angiogram was performed of the chest utilizing 76 mL of Omnipaque 350. Thick SLAB MIP imaging was performed. The current CT scan was performed using radiation dose-reduction techniques. FINDINGS: No filling defects are present within the pulmonary arteries to suggest pulmonary embolism. The thoracic aorta and great vessels are within normal limits. Note is made of a retroesophageal right subclavian artery. Unchanged large left pleural effusion with compressive atelectasis. Multiple new groundglass nodular opacities are evident throughout the right lung with obscuration of multiple previously described pleural-based lesions on the left secondary to pleural fluid. There is no pericardial effusion. Stable 2.5 cm nodule within the left cardiophrenic angle region most likely representing an enlarged lymph node. No axillary or supraclavicular adenopathy is evident. A new soft tissue mass is present within the left anterior chest wall overlying the left anterior fifth and sixth ribs most likely the basis of an enlarging rib metastasis. Stable additional multiple sclerotic bony metastasis throughout the chest. Scans through the upper abdomen demonstrate no abnormalities. IMPRESSION: 1. No evidence of pulmonary emboli. 2. Large left effusion with compressive atelectasis and obscuration of multiple known pleural-based metastasis. 3. Multiple new groundglass nodular lesions throughout the right lung with enlarging left anterior rib metastasis most consistent with neoplastic progression. 4. Stable enlarged pericardial lymph node. .
--- NOTE | 2018-01-27 12:32 | History & Physical Report ---
History of Present Illness Date: 01/27/18 Chief complaint: SOA HPI: Doris Phelps is a 72 year old woman with a hx of multiple myeloma, diagnosed initially in January, with recent recurrence discovered via bone marrow biopsy in Dec, 2017. She last had chemo about 4 weeks ago. She was [place] [facility] [place] for hypotension and near-syncope. She was Rx Levaquin at time of discharge. She began having shortness of breath on January 24 and over the weekend it progressed. She has only had a mild intermittent, nonproductive cough. She has left-sided rib pain and upper abdominal pain from a known rib fracture.She denies fever/chills. She denies chest pain/palpitations. She has felt weak and very fatigued. She has felt like she might pass out. She has had decreased oral intake, mostly because her chin feels numb, which makes it difficult to eat and swallow. Initially it was only on the left side of her chin last week, but now it is her entire chin and submandibular area. She has even accidently bit the inside of her mouth because of the numbness. She denies aspiration. She also has felt constipated but started having diarrhea and pain with defecation on 01/26/18. She denies seeing any blood in her stool. She denies dysuria but since receiving Lasix in the ED she's had urinary frequency. She tends to bruise easily - hx of low platelets. Dr. Gutierrez's office sent her to the ED for evaluation. She was tachycardic with a HR of 130 on arrival but was saturating 98% on room air. Labs showed pancytopenia with WBC of 2.6, hgb 8.5, and plt 13. Chemistries were overall unremarkable. D-dimer was elevated at 1199 and CTA was done. This showed a large left effusion, pleural metastasis, groundglass nodular lesions in the right lung consistent with neoplastic progression. It was negative for PE. She was given a DuoNeb treatment in the ED and Lasix, as mentioned. She also received IV Levaquin. Dr. Horn was contacted and the patient was admitted for Past Medical History Medical History: Medical History (Last Updated 01/08/18 @ 13:30 by Eula Rahman MD) Fracture of humerus, closed Right, s/p ORIF Dr. Mrarero 2017 Multiple myeloma Hypertension Medical History Updates: Multiple myeloma Surgical History: Tubal ligation. Right humerus ORIF Dr. Montemayor 2017 Family History: Family History (Last Updated 04/24/17 @ 09:28 by Dennise Myrick) Mother Non-Hodgkin lymphoma Father Heart disease Diabetes Family History Updates: Mother - at age 86 of NHL; also had breast cancer in her 70s. She also had high cholesteral; CAD; CABG x3; PVD. Father - diabetes ; needed leg amputation from diabetes; slow bone cancer that wasn't r/t to . of CHF, age 86. 1 sister (younger) - healthy Family History: As Above - Social History Smoking status: Never smoker (second hand exposure) Substance use type: does not use Alcohol intake frequency: does not drink Household members: spouse (He is ill with metastatic prostate cancer) Previous occupational history: [employer]; [employer]; [employer] Current residence: Apartment/Private Home Medications Home Medications Medication Instructions Recorded Confirmed Type Zovirax (acyclovir) 400 mg tablet 400 mg PO BID tab 04/24/17 01/27/18 History calcium carbonate 600 mg (1,500 1 tab PO BID 04/24/17 01/27/18 History mg)-vitamin D3 400 unit tablet Levofloxacin [Levaquin] 500 mg PO DAILY #14 tab 01/12/18 01/27/18 Rx Magnesium Oxide [Magox] 400 mg PO BID #60 tab 01/12/18 01/27/18 Rx Nystatin Oral Liq. [Mycostatin] 5 ml PO QID #200 ml 01/12/18 01/27/18 Rx Allopurinol [Zyloprim] 300 mg PO DAILY 01/27/18 01/27/18 History Lenalidomide [Revlimid] 20 mg PO DAILY 01/27/18 01/27/18 History Lisinopril [Prinivil] 20 mg PO DAILY 01/27/18 01/27/18 History Oxycodone HCl 5 mg PO Q4H PRN 01/27/18 01/27/18 History Potassium Chloride 10 meq PO DAILY 01/27/18 01/27/18 History Allergies Allergy/AdvReac Type Severity Reaction Status Date / Time Penicillins Allergy Mild RASH Verified 01/07/18 11:09 Sulfa (Sulfonamide Allergy Mild RASH Verified 01/07/18 11:09 Antibiotics) KELFEX AdvReac Diarrhea Uncoded 01/27/18 13:44 Exam Vital Signs: Temperature 97.8 F 01/27/18 08:30 Pulse Rate 130 H 01/27/18 08:30 Respiratory Rate 22 01/27/18 08:56 Blood Pressure 139/62 01/27/18 08:30 Pulse Oximetry 98 01/27/18 08:56 Height/Weight/BMI: Height 1.57 m Weight 58.9 kg - Constitutional Present: no acute distress, well nourished, well developed - Routine HEENT Exam Head: Present: normocephalic Eye: Present: PERRL. Absent: conjunctival icterus, scleral injection ENT: Present: oropharynx clear - Routine Neck Exam Present: supple - Routine Respiratory Exam Present: dyspnea (becomes short of breath with movement in bed) Comments: markedly decreased breath sounds to left upper/lower lobes - Routine Cardiovascular Exam Present: RRR, S1, S2, tachycardia (107) - Routine Abdominal Exam Present: soft, normoactive bowel sounds, non distended, non tender - Routine Rectal Exam Visual: Present: normal rectal tone, fecal impaction. Absent: black stool, bloody stool, paulette blood, tenderness, heme (+) stool Digital: Absent: thrombosed external hemorrhoid - Routine Extremities Exam Present: no edema - Routine Skin Exam Present: intact, dry, warm, ecchymosis (extremities) - Routine Neurological Exam Present: alert, oriented X3, CN II-XII intact, moving all extremities, vision grossly intact, hearing grossly intact, normal speech. Absent: sensory deficit , motor deficit, altered mental status, facial asymmetry - Routine Psychiatric Exam Present: normal affect, normal thought process, cooperative Results - Labs CBC & Chem 7: 01/27/18 09:02 01/27/18 09:02 Microbiology Results: Microbiology 01/27/18 09:03 Peripheral/Iv Start Blood Culture - Preliminary Culture Initiated - Results Pending 01/27/18 09:16 Peripheral/Iv Start Blood Culture - Preliminary Culture Initiated - Results Pending - Imaging and Cardiology CT scan - chest Status: image reviewed by me Additional comments: FINDINGS: No filling defects are present within the pulmonary arteries to suggest pulmonary embolism. The thoracic aorta and great vessels are within normal limits. Note is made of a retroesophageal right subclavian artery. Unchanged large left pleural effusion with compressive atelectasis. Multiple new groundglass nodular opacities are evident throughout the right lung with obscuration of multiple previously described pleural-based lesions on the left secondary to pleural fluid. There is no pericardial effusion. Stable 2.5 cm nodule within the left cardiophrenic angle region most likely representing an enlarged lymph node. No axillary or supraclavicular adenopathy is evident. A new soft tissue mass is present within the left anterior chest wall overlying the left anterior fifth and sixth ribs most likely the basis of an enlarging rib metastasis. Stable additional multiple sclerotic bony metastasis throughout the chest. Scans through the upper abdomen demonstrate no abnormalities. IMPRESSION: 1. No evidence of pulmonary emboli. 2. Large left effusion with compressive atelectasis and obscuration of multiple known pleural-based metastasis. 3. Multiple new groundglass nodular lesions throughout the right lung with enlarging left anterior rib metastasis most consistent with neoplastic progression. 4. Stable enlarged pericardial lymph node. Assessment and Plan (1) Pleural effusion Current visit: Yes Status: Acute Assessment and Plan: IMPRESSION Large left pleural effusion Dyspnea - likely secondary to pleural effusion Pancytopenia (neutropenia, anemia, thrombocytopenia) Rule out sepsis (SIRS = leukopenia, tachycardia, tachypnea) Diarrhea; fecal impaction Mandibular paresthesias Multiple myeloma with pleural and rib metastases Moderate Protein Calorie Malnutrition HTN Thrush - improved PLAN Admit, observation status under the hospitalist service. Continue oxygen for comfort. DuoNebs PRN. Discussed with BERNA Landon - he will investigate minimum platelet count for a thoracentesis. Consult Dr. Ann. Continue Levaquin, acyclovir. Check stool for GI panel/C. diff. Fleet's enema for fecal impaction. Lisinopril held at admission - monitor renal function with Levaquin/IV contrast and monitor BP. Consult dietary given anorexia. May need to consider parenteral nutrition. Her weight is stable compared to her discharge weight 01/12/18. Consult speech given numbness to chin. Would recommend further discussions about goals of care during hospitalization. PCP: Dr. Hummel. D/W Dr. Horn, ED RN, and ED MD. DVT Prophylaxis: SCD's Resuscitation Status: Full Code - Physician Narrative Physician: Allen Horn MD Narrative: Date: 01/27/18 Time: 1733 Have independently interviewed and examined pt. Chart reviewed. Case discussed with ED physician and my POLE INCISOR OPERATOR. Care plan developed with my supervision; agree with above. Presents to ED secondary to increasing SOA. Gets winded with activities. Little cough/congestion but hard to take deep breath. Appetite decreased-gets full after eating only small amounts. Nausea stable. Does feel progressively more weak. Lungs: decreased left breath sounds CV: tachy, regular AB: soft nt/nd MSE: awake alert appropriate Plan: Will place in OBS status. With increasing left pleural effusion, paracentesis likely to significantly help patient. Discussed risk/benefits/ alternatives. With platelets low, cannot proceed now. Will transfuse 2 platelet pack-monitor platelets. Will give low flow NS for renal protection secondary to IV contrast. Do not feel diuretics will do much for effusion. SCD. ONC consult secondary to underlying cancerous process. Hospital Course Summary Disclaimer: The visit summary below is not to be considered part of the above Progress Note. Hospital Course: 01/27/18 Admit, observation status under the hospitalist service. Continue oxygen for comfort. Evy PRN. Discussed with BERNA Landon - he will investigate minimum platelet count for a thoracentesis -- needs to be above 50K. Consult Dr. Ann. Continue Levaquin, acyclovir. Check stool for GI panel/C. diff. Fleet's enema for fecal impaction. Lisinopril held at admission - monitor renal function with Levaquin/IV contrast and monitor BP. Consult dietary given anorexia. May need to consider parenteral nutrition. Her weight is stable compared to her discharge weight 01/12/18. Consult speech given numbness to chin. Would recommend further discussions about goals of care during hospitalization.
[2018-01-27 13:18] VITALS: BMI 23.1
[2018-01-27] MEDS ORDERED: FLEET PHOSPHO - SODA ENEMA 133ml PR PRN (13:45)
[2018-01-27] MEDS ORDERED: FLEET PHOSPHO - SODA ENEMA 133ml PR ONE (13:45)
[2018-01-27] MEDS ORDERED: ALBUTEROL/IPRATROPIUM 2.5mg-0.5mg/3ml NEB AEROSOL PRN (13:51)
[2018-01-27] MEDS ORDERED: NS FLUSH BAG 500ml IV PRN (15:00)
[2018-01-27] MEDS: NYSTATIN PO SCH ×3 (15:14→20:16)
[2018-01-27] MEDS ORDERED: BISACODYL 10 MG SUPPOSITORY RECTALLY PRN (15:27)
--- NOTE | 2018-01-27 16:32 | Consult Note ---
Oncology HPI - Data of Consult Patient: known to practice within the last 3 years Consult date: 01/27/18 Requesting Physician: Allen Horn MD Primary Care Provider: Rahul Hummel DO - Consult Narrative Reason for consult: multiple myeloma History of present illness: 72-year-old female, well-known to Dr. Ann with history of recurrent/ progressive multiple myeloma has had recent bouts with pancytopenia, requiring multiple transfusions. Current treatment is Darzalex, Revlimid and dexamethasone -last given 12/25/17; treatment has been held secondary to pancytopenia. Sent to [facility] today with increased weakness and feeling like she was going to pass out. Noted to have tachycardia, significant pancytopenia persists , and CT chest showed large left effusion, pleural metastasis, groundglass nodule lesions in the right lung consistent consistent with neoplastic progression. No evidence of pulmonary embolism. Admitted for further evaluation and supportive care. At time of intake continues to c/o severe weakness. Denies fever/chills. No headaches, some SOA/cough-denies chest pain. Recent c/o of mouth numbness; not improving. Has constipation/received an enema/had digital removal of stool today -continues to feel like has more stool to pass, but difficult to do. Discouraged with lack of progress; inability to take treatment. Review of Systems - Constitutional Constitutional: Present: fatigue, weakness - EENT Eyes: Absent: diplopia Mouth/Throat: Present: other (numbness mouth) - Cardiovascular Cardiovascular: Present: dyspnea on exertion. Absent: chest pain - Respiratory Respiratory: Present: cough, dyspnea on exertion - Gastrointestinal Gastrointestinal: Present: constipation - Genitourinary Genitourinary: Absent: dysuria, hematuria - Musculoskeletal Musculoskeletal: Present: muscle weakness - Neurological Neurological: Present: numbness (in mouth). Absent: confusion - Psychiatric Psychiatric: Present: anxiety - Hematologic/Lymphatic Hematologic/Lymphatic: Present: as per HPI, anemia PFSH Patient Stated Medical History Hypertension Yes Asthma Yes: childhood Anemia Yes Blood Disorders Yes: multiple myloma 01/30/17 Other Musculoskeletal Yes: spontaneous fractures Blood Transfusions Yes Chemotherapy Yes: last 01/08/18 Post Menopausal Yes Clinic Medical History (Last Updated 01/08/18 @ 13:30 by Eula Rahman MD) Fracture of humerus, closed (Acute Medical) Right, s/p ORIF Dr. Marrero 2017 Multiple myeloma (Acute Medical) Hypertension (Chronic Medical) Medical History Updates: Multiple myeloma Surgical History: Tubal ligation. Right humerus ORIF Dr. Montemayor 2017 Family History: Family History (Last Updated 04/24/17 @ 09:28 by Dennise Myrick) Mother Non-Hodgkin lymphoma Father Heart disease Diabetes Family History Updates: Mother - at age 86 of NHL; also had breast cancer in her 70s. She also had high cholesteral; CAD; CABG x3; PVD. Father - diabetes ; needed leg amputation from diabetes; slow bone cancer that wasn't r/t to . of CHF, age 86. 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 [Mycostatin] 5 ml PO QID #200 ml 01/12/18 01/27/18 Rx Allopurinol [Zyloprim] 300 mg PO DAILY 01/27/18 01/27/18 History Lenalidomide [Revlimid] 20 mg PO DAILY 01/27/18 01/27/18 History Lisinopril [Prinivil] 20 mg PO DAILY 01/27/18 01/27/18 History Oxycodone HCl 5 mg PO Q4H PRN 01/27/18 01/27/18 History Potassium Chloride 10 meq PO DAILY 01/27/18 01/27/18 History Allergies Allergy/AdvReac Type Severity Reaction Status Date / Time Penicillins Allergy Mild RASH Verified 01/07/18 11:09 Sulfa (Sulfonamide Allergy Mild RASH Verified 01/07/18 11:09 Antibiotics) KELFEX AdvReac Diarrhea Uncoded 01/27/18 13:44 Exam Vital signs: Temperature 97.8 F 01/27/18 08:30 Pulse Rate 107 H 01/27/18 13:03 Respiratory Rate 18 01/27/18 13:03 Blood Pressure 122/63 01/27/18 13:03 Pulse Oximetry 100 01/27/18 13:03 - Constitutional mild distress, well nourished, well developed - Routine HEENT Exam Head: Present: normocephalic Eye: Present: EOMI. Absent: scleral injection ENT: Present: mucous membranes dry Throat: normal inspection - Routine Neck Exam Present: supple. Absent: lymphadenopathy - Routine Respiratory Exam Present: decreased breath sounds (left). Absent: wheezes, crackles - Routine Cardiovascular Exam Present: RRR, no murmur, tachycardia - Routine Abdominal Exam Present: soft, non tender. Absent: mass - Routine Extremities Exam Present: no edema, full ROM - Routine Skin Exam Present: intact, dry. Absent: petechiae - Routine Neurological Exam Present: alert, oriented X3 - Routine Psychiatric Exam Present: normal affect, cooperative Oncology Results - Labs CBC & Chem 7: 01/27/18 09:02 01/27/18 09:02 - Impressions Date of Exam: 01/27/18 Ordering Provider: Quinton Hernandez DO Type of Exam(s): CT angio pulm emboli Reason for Exam(s): Dyspnea; elevated d-Dimer EXAM: CT angio pulm emboli HISTORY: Dyspnea; elevated d-Dimer COMPARISON: CT chest dated 12/13/2017 and chest x-ray dated 01/27/2018. PROCEDURE: CT angiogram was performed of the chest utilizing 76 mL of Omnipaque 350. Thick SLAB MIP imaging was performed. The current CT scan was performed using radiation dose-reduction techniques. FINDINGS: No filling defects are present within the pulmonary arteries to suggest pulmonary embolism. The thoracic aorta and great vessels are within normal limits. Note is made of a retroesophageal right subclavian artery. Unchanged large left pleural effusion with compressive atelectasis. Multiple new groundglass nodular opacities are evident throughout the right lung with obscuration of multiple previously described pleural-based lesions on the left secondary to pleural fluid. There is no pericardial effusion. Stable 2.5 cm nodule within the left cardiophrenic angle region most likely representing an enlarged lymph node. No axillary or supraclavicular adenopathy is evident. A new soft tissue mass is present within the left anterior chest wall overlying the left anterior fifth and sixth ribs most likely the basis of an enlarging rib metastasis. Stable additional multiple sclerotic bony metastasis throughout the chest. Scans through the upper abdomen demonstrate no abnormalities. IMPRESSION: 1. No evidence of pulmonary emboli. 2. Large left effusion with compressive atelectasis and obscuration of multiple known pleural-based metastasis. 3. Multiple new groundglass nodular lesions throughout the right lung with enlarging left anterior rib metastasis most consistent with neoplastic progression. 4. Stable enlarged pericardial lymph node. . Assessment and Plan Assessment and Plan: 1. High risk IgA kappa multiple myeloma status post RVD 4, followed by autologous stem cell transplant done 06/2017. Recurrent disease within 6 months of stem cell transplant, now on Darzalex/Revlimid/dexamethasone; last given . Treatment has been delayed with persistent leukopenia and thrombocytopenia; has required multiple transfusions of packed RBC's/platelets. 2. Large left pleural effusion. 3. Constipation/fecal impaction. Moderate results after enema/digital removal. Plan Continue supportive care. Consider thoracentesis-will need platelet count~50, 000. To receive 2u platelets today. Dr. Ann to see patient later today.
[2018-01-27] MEDS: NS 1,000 ML IV SCH (18:31)
[2018-01-27] MEDS: VIT D PO SCH (20:14)
[2018-01-27] MEDS: CALCIUM PO SCH (20:14)
[2018-01-27] MEDS: MAGNESIUM OXIDE 400 MG PO SCH (20:14)
[2018-01-27] MEDS: ACYCLOVIR 400 MG PO SCH (20:15)
[2018-01-27] MEDS: POTASSIUM CHLORIDE 10 MEQ PO SCH (20:16)
[2018-01-27] MEDS: Oxycodone *IR* 5 MG TABLET PO PRN (23:19)
[2018-01-28] MEDS: POTASSIUM CHLORIDE 10 MEQ PO SCH (08:16)
[2018-01-28] MEDS: CALCIUM PO SCH ×2 (08:17→21:55)
[2018-01-28] MEDS: ALLOPURINOL 300 MG TAB - PT OWN PO SCH (08:17)
[2018-01-28] MEDS: VIT D PO SCH ×2 (08:17→21:55)
[2018-01-28] MEDS: ACYCLOVIR 400 MG PO SCH ×2 (08:18→21:56)
[2018-01-28] MEDS: MAGNESIUM OXIDE 400 MG PO SCH ×2 (08:18→21:56)
[2018-01-28] MEDS: NYSTATIN PO SCH ×4 (08:19→21:56)
[2018-01-28] MEDS: LEVOFLOXACIN PB 750 MG/150 ML BAG IV SCH (10:29)
--- NOTE | 2018-01-28 11:55 | Progress Note ---
- Date 01/28/18 Subjective: Imelda is seen this morning while sleeping. She awakens easily with soft voice and touch stimuli. She reports that she is doing "ok" today. She denies any chest pain, abdominal pain, nausea, vomiting or dysuria. She denies any shortness of breath currently but does admit to some left sided lung/rib pain. Labs today revealed persistent pancytopenia (WBC 1.8, Hgb 7.1 and Plt 46) with calculated FAMILIA 1044 (neutropenic). Electrolytes are stable. Platelets improved to 46 following 2 units of platelets on 01/27/18 and preparing to receive another unit now. Objective Vital signs: Temperature 97.9 F 01/28/18 08:03 Pulse Rate 113 H 01/28/18 08:09 Respiratory Rate 28 H 01/28/18 08:03 Blood Pressure 140/67 H 01/28/18 08:03 Pulse Oximetry 96 01/28/18 08:03 Height/Weight/BMI: Height 5 ft 2 in Weight 128 lb 15.527 oz Body Mass Index 23.1 Comments: sleeping; awakens easily. - Constitutional Present: no acute distress, well nourished, well developed, thin, cooperative - Routine HEENT Exam Head: Present: normocephalic, atraumatic Eye: Present: PERRL. Absent: conjunctival icterus ENT: Present: mucous membranes dry - Routine Respiratory Exam Present: decreased breath sounds Comments: Mild conversational dyspnea. No cough. - Routine Cardiovascular Exam Present: RRR, S1, S2 - Routine Abdominal Exam Present: soft, normoactive bowel sounds, non distended - Routine Extremities Exam Present: edema (1+ bilaterally), pulses intact - Routine Back/Spine/Pelvis Exam Back/Spine: Present: full ROM. Absent: vertebral tenderness - Routine Musculoskeletal Exam Musculoskeletal: Present: no clubbing or cyanosis, moving extremities well - Routine Skin Exam Present: intact, dry, warm Comments: Afebrile. - Routine Neurological Exam Present: alert, moving all extremities, hearing grossly intact, normal speech - Routine Psychiatric Exam Present: cooperative Comments: Appears fatigued. Results - Labs CBC & Chem 7: 01/28/18 15:01 01/28/18 04:39 Assessment and Plan (1) Pleural effusion Current visit: Yes Status: Acute Assessment and Plan: IMPRESSION Large left pleural effusion Dyspnea - likely secondary to pleural effusion Pancytopenia (neutropenia, anemia, thrombocytopenia) Rule out sepsis (SIRS = leukopenia, tachycardia, tachypnea) Diarrhea; fecal impaction Mandibular paresthesias Multiple myeloma with pleural and rib metastases Moderate Protein Calorie Malnutrition HTN Thrush - improved PLAN Platelets increased to 46 following 2 units platelets on 01/27/18. Plan to given another 1 unit platelets now with goal of platelets >50K. Plan for thoracentesis today, 01/28/18, once platelets are >50K. Continue oxygen for comfort. DuoNebs PRN. Continue Levaquin and acyclovir for SIRS and high risk for infection. FAMILIA 1044 - will initiate neutropenic precautions. Stool cultures negative. Lisinopril held on admission due to preserve her renal function and blood pressure given recent CTA with contrast and anemia. Monitor blood pressure closely. Continue to monitor renal function with Levaquin. Consult dietary given anorexia. May need to consider parenteral nutrition. Her weight is stable compared to her discharge weight 01/12/18. Speech noted mild dysphagia and recommended mechanical soft diet with thin liquids at upright position. DVT Prophylaxis: SCD's Resuscitation Status: Full Code - Time spent with patient Time with patient PN: 25 minutes - Physician Narrative Physician: Allen Horn MD Narrative: Date: 01/28/18 Time: 1800 Have independently interviewed and examined pt. Chart reviewed. Case discussed with ERIN, Chapo Garcia, and my PA. Care plan developed with my supervision; agree with above. Doing well this evening. Breathing does feel better post thoracentesis-feels can get air in better, less labor with breathing. Respirations still shallow/ rapid. Not having pain where needle was. No nausea or ab pain. No f/c. Does feel tire/weak in general. Lungs: Continued left basilar blunting. CV: tachy, regular AB: soft nt MSE: awake alert Plan: Tolerated thoracentesis with gradual improvement of respiratory status but still feeling SOA and resp rate elevated. Will change to inpatient status to continue care. While 1200cc fluid removed-Chapo Garcia notes still likely 2L ( procedure stopped due to cough-rightly so). With thrombocytopenia, need to be mindful of bleeding. Will recheck CBC and CXR in am. Possible repeat thoracentesis base on pt's symptoms and CXR. HGB with decrease-possible need transfusion. Can stop IVF as renal status stable. Hospital Course Summary Disclaimer: The visit summary below is not to be considered part of the above Progress Note. Hospital Course: 01/27/18 Admit, observation status under the hospitalist service. Continue oxygen for comfort. DuoNebs PRN. Discussed with BERNA Landon - he will investigate minimum platelet count for a thoracentesis -- needs to be above 50K. Consult Dr. Ann. Continue Levaquin, acyclovir. Check stool for GI panel/C. diff. Fleet's enema for fecal impaction. Lisinopril held at admission - monitor renal function with Levaquin/IV contrast and monitor BP. Consult dietary given anorexia. May need to consider parenteral nutrition. Her weight is stable compared to her discharge weight 01/12/18. Consult speech given numbness to chin. Would recommend further discussions about goals of care during hospitalization. 01/28/18 Platelets increased to 46 following 2 units platelets on 01/27/18. Plan to given another 1 unit platelets now with goal of platelets >50K. Plan for thoracentesis today, 01/28/18, once platelets are >50K. Hemoglobin decreased from 8.5 at admission to 7.1 - potentially need transfusion of pRBC. Continue oxygen for comfort. DuoNebs PRN. Continue Levaquin and acyclovir for SIRS and high risk for infection. FAMILIA 1044 - will initiate neutropenic precautions. Stool cultures negative. Lisinopril held on admission due to preserve her renal function and blood pressure given recent CTA with contrast and anemia. Monitor blood pressure closely. Continue to monitor renal function with Levaquin. Consult dietary given anorexia. May need to consider parenteral nutrition. Her weight is stable compared to her discharge weight 01/12/18. Speech noted mild dysphagia and recommended mechanical soft diet with thin liquids at upright position. Tolerated thoracentesis with gradual improvement of respiratory status but still feeling SOA and resp rate elevated. While 1200cc fluid removed-Chapo Garcia notes still likely 2L (procedure stopped due to cough-rightly so). Will change to inpatient status to continue care. Need to monitor respiratory status closely. Possible repeat thoracentesis. Can stop IVF as renal status stable.
[2018-01-28] MEDS: SALINE FLUSH 10ml SYRINGE IV PRN ×2 (13:54→13:55)
[2018-01-28] MEDS ORDERED: LIDOCAINE 1% (10mg/ml) 2mL INJ PF SDV ONE (14:42)
--- NOTE | 2018-01-28 17:55 | Ultrasound Report ---
Indication:Left pleural effusion Ordering physician:Allen Horn MD Procedure:US thoracentesis THORACENTESIS: After discussing the details of the procedure, including the risks, the patient wished to proceed. Informed consent was obtained. A preprocedural timeout was performed to confirm the correct patient and procedure. Using aseptic technique, local lidocaine anesthetic, and ultrasound guidance throughout, a left-sided thoracentesis was performed using a posterolateral approach. 1200 mL of serosanguineous fluid was removed from the left hemithorax and sent to lab. The patient tolerated this procedure well. Following this, the patient was taken back to her room on the medical floor for continued monitoring. Impression: Successful left-sided thoracentesis performed with 1200 cc of serosanguineous fluid removed and sent to lab. .
[2018-01-28] MEDS: NS 1,000 ML IV SCH (18:42)
[2018-01-28] MEDS: Oxycodone *IR* 5 MG TABLET PO PRN (20:36)
--- NOTE | 2018-01-28 20:41 | Progress Note ---
Oncology Subjective Shortness of breath, bone pain fatigue. Exam Vital signs: Temperature 97.5 F 01/28/18 13:30 Pulse Rate 109 H 01/28/18 19:21 Respiratory Rate 22 01/28/18 19:21 Blood Pressure 114/50 01/28/18 19:21 Pulse Oximetry 97 01/28/18 19:21 Narrative: Looks ill, in pain. - Constitutional mild distress, cooperative - Routine Chest/Breast/Axilla Exam Chest wall: Present: tenderness, mass - Routine Respiratory Exam Present: decreased breath sounds, distant breath sounds, diminished air movement - Routine Cardiovascular Exam Present: RRR, no murmur - Routine Abdominal Exam Present: soft - Routine Back/Spine/Pelvis Exam Back/Spine: Present: pain with rotation - Routine Neurological Exam Present: oriented X3 Oncology Results - Labs CBC & Chem 7: 01/28/18 15:01 01/28/18 04:39 Assessment and Plan Assessment and Plan: Assessment: 1. Refractory IgA kappa multiple myeloma status post RVD 4, followed by autologous stem cell transplant done 06/2017. Recurrent disease within 6 months of stem cell transplant, now on Darzalex/Revlimid/dexamethasone; last given . Treatment has been delayed with persistent leukopenia and thrombocytopenia; has required multiple transfusions of packed RBC's/platelets. 2. Large left pleural effusion. 3. Pancytopenia most likely due to progressive disease with extensive bone marrow involvement by the relapsed myeloma. 4. Disease is rapidly progressing off therapy. Plan: 1. I reviewed with the patient the critical situation of rapidly disease progression especially in the lung and bones. We discussed the role of salvage treatment. We discussed prognosis. The patient would like to continue fighting. The patient has poor tolerance to darzalex, I would resume myeloma therapy with salvage treatment either Emplicit/Elotuzumab + Rev/Dex or Kyprolis + Rev or Pomalyst/Dex. 2. Supportive care with pain medicine and transfusions as needed - Time Spent With Patient Total time spent is greater than 50% in coordination of care (as documented) at patient's floor/unit and/or counseling patient: 25 - 35 minutes
[2018-01-29] MEDS: Oxycodone *IR* 5 MG TABLET PO PRN (02:54)
[2018-01-29 07:47] VITALS: BP 132/67; O2SAT 95
[2018-01-29 08:14] VITALS: TEMP 97.1
[2018-01-29] MEDS: LEVOFLOXACIN PB 750 MG/150 ML BAG IV SCH (09:02)
[2018-01-29] MEDS: ALLOPURINOL 300 MG TAB - PT OWN PO SCH (09:06)
[2018-01-29] MEDS: POTASSIUM CHLORIDE 10 MEQ PO SCH (09:06)
[2018-01-29] MEDS: ACYCLOVIR 400 MG PO SCH (09:08)
[2018-01-29] MEDS: NYSTATIN PO SCH (09:08)
[2018-01-29] MEDS: CALCIUM PO SCH (09:08)
[2018-01-29] MEDS: MAGNESIUM OXIDE 400 MG PO SCH (09:08)
[2018-01-29] MEDS: VIT D PO SCH (09:08)
--- NOTE | 2018-01-29 09:17 | XRay Report ---
Indication: F/U effusion Procedure: XR chest 1V: Encounter: Subsequent Comparison: Thoracentesis imaging of the previous day, pulmonary CT angiogram and chest radiographs 01/27/2018 Technique: A single portable AP chest radiograph was obtained. Findings: Lungs and airways: Low left lung volume. Left hemithorax airspace opacification secondary to a combination of pleural effusion and relaxation atelectasis. Grossly normal pulmonary vasculature. Pleura: Residual/recurrent moderate to large left pleural effusion. No pneumothorax. Heart and mediastinum: The cardiomediastinal silhouette and great vessels appear unchanged. Osseous structures and soft tissues: No acute osseous abnormality is seen. Degenerative arthrosis of the AC joints. Impression: Residual/recurrent moderate to large left pleural effusion with associated left pulmonary relaxation atelectasis. .
[2018-01-29] MEDS ORDERED: LORazepam 0.5 MG TABLET PO PRN (09:50)
--- NOTE | 2018-01-29 10:04 | Progress Note ---
- Date 01/29/18 Subjective: Doris is seen this morning in follow up. She is very anxious regarding being transferred to [place] for further oncology treatment. Other than worry she states she is feeling about the same. Denies feeling short of breath or having chest pain. Noted to be tachycardic 116 which has been ongoing. Weight down 2.5 Kg following thoracentesis. Objective Vital signs: Temperature 97.1 F 01/29/18 08:00 Pulse Rate 109 H 01/29/18 07:43 Respiratory Rate 20 01/29/18 07:43 Blood Pressure 132/67 01/29/18 07:43 Pulse Oximetry 95 01/29/18 07:43 Height/Weight/BMI: Weight 57.4 kg - Constitutional Present: no acute distress, well nourished, well developed - Routine HEENT Exam Eye: Present: EOMI ENT: Present: mucous membranes moist, dentition normal - Routine Respiratory Exam Present: diminished air movement. Absent: wheezes - Routine Cardiovascular Exam Present: RRR, S1, S2. Absent: murmur - Routine Abdominal Exam Present: soft, normoactive bowel sounds, non distended. Absent: tenderness - Routine Extremities Exam Present: normal capillary refill - Routine Skin Exam Present: intact, dry, warm - Routine Neurological Exam Present: alert, oriented X3, CN II-XII intact, moving all extremities - Routine Lymphatic Exam Lymphatic: Absent: adenopathy - Routine Psychiatric Exam Present: normal affect, cooperative, anxious Results - Labs CBC & Chem 7: 01/29/18 03:57 01/29/18 03:57 Assessment and Plan (1) Pleural effusion Current visit: Yes Status: Acute Assessment and Plan: IMPRESSION Large left pleural effusion Dyspnea - likely secondary to pleural effusion Pancytopenia (neutropenia, anemia, thrombocytopenia) Rule out sepsis (SIRS = leukopenia, tachycardia, tachypnea) Diarrhea; fecal impaction Mandibular paresthesias 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 DuoNebs PRN. Tolerated thoracentesis well, removal of 1200 mL serosanguineous fluid from left hemothorax yesterday Ordered Ativan 0.5mg Po every 4 hrs as needed for anxiety Oncology is arranging transportation to [place] for further Oncology treatment - Physician Narrative Physician: Allen Horn MD Narrative: Date: 01/29/18 Time: 1129 Have independently interviewed and examined pt. Chart reviewed. Case discussed with my TELEVISION ENGINEERING TEACHER. Care plan developed with my supervision; agree with above. Breathing better that yesterday-less SOA. No pain from incisional site. Still very weak. Dr Ann making arrangements for patient to be transfer to as cancer progressing. Lungs: Left blunting, shallow breathing CV: tachy, regular AB: soft nt MSE: awake alert, some anxiety Plan: Will discharge patient to for oncological care and treatment outside scope of our abilities at [facility]. Hospital Course Summary Disclaimer: The visit summary below is not to be considered part of the above Progress Note. Hospital Course: 01/27/18 Admit, observation status under the hospitalist service. Continue oxygen for comfort. DuoNebs PRN. Discussed with BERNA Landon - he will investigate minimum platelet count for a thoracentesis -- needs to be above 50K. Consult Dr. Ann. Continue Levaquin, acyclovir. Check stool for GI panel/C. diff. Fleet's enema for fecal impaction. Lisinopril held at admission - monitor renal function with Levaquin/IV contrast and monitor BP. Consult dietary given anorexia. May need to consider parenteral nutrition. Her weight is stable compared to her discharge weight 01/12/18. Consult speech given numbness to chin. Would recommend further discussions about goals of care during hospitalization. 01/28/18 Platelets increased to 46 following 2 units platelets on 01/27/18. Plan to given another 1 unit platelets now with goal of platelets >50K. Plan for thoracentesis today, 01/28/18, once platelets are >50K. Hemoglobin decreased from 8.5 at admission to 7.1 - potentially need transfusion of pRBC. Continue oxygen for comfort. DuoNebs PRN. Continue Levaquin and acyclovir for SIRS and high risk for infection. FAMILIA 1044 - will initiate neutropenic precautions. Stool cultures negative. Lisinopril held on admission due to preserve her renal function and blood pressure given recent CTA with contrast and anemia. Monitor blood pressure closely. Continue to monitor renal function with Levaquin. Consult dietary given anorexia. May need to consider parenteral nutrition. Her weight is stable compared to her discharge weight 01/12/18. Speech noted mild dysphagia and recommended mechanical soft diet with thin liquids at upright position. Tolerated thoracentesis with gradual improvement of respiratory status but still feeling SOA and resp rate elevated. While 1200cc fluid removed-Chapo Garcia notes still likely 2L (procedure stopped due to cough-rightly so). Will change to inpatient status to continue care. Need to monitor respiratory status closely. Possible repeat thoracentesis. Can stop IVF as renal status stable. 01/29/18 Continues to have pancytopenia and Neutropenia- ANC- 738 (remains on Neutropenic precautions) Continue Levaquin and acyclovir for coverage Continue oxygen for comfort. DuoNebs PRN. Tolerated thoracentesis well, removal of 1200 mL serosanguineous fluid from left hemothorax yesterday Ordered Ativan 0.5mg Po every 4 hrs as needed for anxiety Oncology is arranging transportation to [place] for further Oncology treatment
[2018-01-29 10:59] VITALS: RESP 22
[2018-01-29 12:24] VITALS: PULSE 114
--- NOTE | 2018-01-29 13:03 | Discharge Summary ---
Discharge Information Date of admission: 01/28/18 17:57 Anticipated date of discharge: 01/29/18 Attending Physician: Allen Horn MD Primary care physician: Rahul Hummel DO Consults: Dr Ann - Oncology - Discharge Diagnosis (1) Pleural effusion Status: Acute Discharge diagnosis Large left pleural effusion Associated conditions and complications Dyspnea - likely secondary to pleural effusion Pancytopenia (neutropenia, anemia, thrombocytopenia) Rule out sepsis (SIRS = leukopenia, tachycardia, tachypnea) Ruled out - no definitive infectious etiology identified Diarrhea; fecal impaction Mandibular paresthesias 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 Informed consent was obtained. A preprocedural timeout was performed to confirm the correct patient and procedure. Using aseptic technique, local lidocaine anesthetic, and ultrasound guidance throughout, a left-sided thoracentesis was performed using a posterolateral approach. 1200 mL of serosanguineous fluid was removed from the left hemithorax and sent to lab. The patient tolerated this procedure well. Following this, the patient was taken back to her room on the medical floor for continued monitoring. Impression: Successful left-sided thoracentesis performed with 1200 cc of serosanguineous fluid removed and sent to lab. - Laboratory Labs: Admit Lab 01/27/18 09:02 WBC 2.6 L D Hgb 8.5 L D Hct 25.3 L D MCV 86.6 Plt Count 13 L* D Neutrophils % (Manual) 59.0 Band Neutrophils % 12.0 H Lymphocytes % (Manual) 23.0 Monocytes % (Manual) 5.0 Basophils % (Manual) 1.0 Admit Lab 01/27/18 09:02 Sodium 137 Potassium 3.8 Chloride 106 Carbon Dioxide 21 L Anion Gap 10 BUN 20.0 H Creatinine 0.7 GFR Calculation 83 BUN/Creatinine Ratio 29 H Glucose 191 H Calculated Osmolality 272 Calcium 8.9 Troponin I < 0.012 NT-Pro-B Natriuret Pep 591 H Plasma Lactate 1.8 Laboratory Tests 01/27/18 01/28/18 09:17 11:28 INR 1.33 H D-Dimer 1199 H Pleural Fluid Laboratory Tests 01/28/18 01/28/18 16:00 16:00 Fluid Type Thoracentesis fluid Fluid Color Red Fluid Turbidity Cloudy Fluid pH 7.33 Fluid RBC 002643 Fld Tot Nucleated Cell 9248 Fluid Neutrophils % 6 Fluid Lymphocytes % 77 Fluid Eosinophils % 0 Fluid Basophils % 0 Fl Monocyt/Macrophag % 7 Fluid Other Cells % 10 Fluid Glucose 51 Fluid Total Protein 5.6 Fluid LDH 4439 Fluid Amylase 11 01/29/18 03:57 01/29/18 03:57 - Radiology Radiology: Date of Exam: 01/27/18 Type of Exam: XR chest 2V FINDINGS: Stable large left pleural effusion. The right lung remains clear. There is no pneumothorax. The cardiac silhouette is stable and the pulmonary vasculature is within normal limits. No mediastinal abnormality is present. Stable right-sided PICC line. IMPRESSION: Stable large left pleural effusion. Date of Exam: 01/27/18 Type of Exam: CT angio pulm emboli FINDINGS: No filling defects are present within the pulmonary arteries to suggest pulmonary embolism. The thoracic aorta and great vessels are within normal limits. Note is made of a retroesophageal right subclavian artery. Unchanged large left pleural effusion with compressive atelectasis. Multiple new groundglass nodular opacities are evident throughout the right lung with obscuration of multiple previously described pleural-based lesions on the left secondary to pleural fluid. There is no pericardial effusion. Stable 2.5 cm nodule within the left cardiophrenic angle region most likely representing an enlarged lymph node. No axillary or supraclavicular adenopathy is evident. A new soft tissue mass is present within the left anterior chest wall overlying the left anterior fifth and sixth ribs most likely the basis of an enlarging rib metastasis. Stable additional multiple sclerotic bony metastasis throughout the chest. Scans through the upper abdomen demonstrate no abnormalities. IMPRESSION: 1. No evidence of pulmonary emboli. 2. Large left effusion with compressive atelectasis and obscuration of multiple known pleural-based metastasis. 3. Multiple new groundglass nodular lesions throughout the right lung with enlarging left anterior rib metastasis most consistent with neoplastic progression. 4. Stable enlarged pericardial lymph node. Date of Exam: 01/29/18 Type of Exam: XR chest 1V Findings: Lungs and airways: Low left lung volume. Left hemithorax airspace opacification secondary to a combination of pleural effusion and relaxation atelectasis. Grossly normal pulmonary vasculature. Pleura: Residual/recurrent moderate to large left pleural effusion. No pneumothorax. Heart and mediastinum: The cardiomediastinal silhouette and great vessels appear unchanged. Osseous structures and soft tissues: No acute osseous abnormality is seen. Degenerative arthrosis of the AC joints. Impression: Residual/recurrent moderate to large left pleural effusion with associated left pulmonary relaxation atelectasis. History of Present Illness HPI: Doris Phelps is a 72 year old woman with a hx of multiple myeloma, diagnosed initially in January, with recent recurrence discovered via bone marrow biopsy in Dec, 2017. She last had chemo about 4 weeks ago. She was admitted to [facility] from January 07- for hypotension and near-syncope. She was Rx Levaquin at time of discharge. She began having shortness of breath on January 24 and over the weekend it progressed. She has only had a mild intermittent, nonproductive cough. She has left-sided rib pain and upper abdominal pain from a known rib fracture.She denies fever/chills. She denies chest pain/palpitations. She has felt weak and very fatigued. She has felt like she might pass out. She has had decreased oral intake, mostly because her chin feels numb, which makes it difficult to eat and swallow. Initially it was only on the left side of her chin last week, but now it is her entire chin and submandibular area. She has even accidently bit the inside of her mouth because of the numbness. She denies aspiration. She also has felt constipated but started having diarrhea and pain with defecation on 01/26/18. She denies seeing any blood in her stool. She denies dysuria but since receiving Lasix in the ED she's had urinary frequency. She tends to bruise easily - hx of low platelets. Dr. Gutierrez's office sent her to the ED for evaluation. She was tachycardic with a HR of 130 on arrival but was saturating 98% on room air. Labs showed pancytopenia with WBC of 2.6, hgb 8.5, and plt 13. Chemistries were overall unremarkable. D-dimer was elevated at 1199 and CTA was done. This showed a large left effusion, pleural metastasis, groundglass nodular lesions in the right lung consistent with neoplastic progression. It was negative for PE. She was given a DuoNeb treatment in the ED and Lasix, as mentioned. She also received IV Levaquin. Dr. Horn was contacted and the patient was admitted for further evaluation and treatment. For completed details of the H&P refer to that document. Objective Vital signs: Temperature 97.1 F 01/29/18 08:00 Pulse Rate 114 H 01/29/18 08:00 Respiratory Rate 22 01/29/18 10:59 Blood Pressure 132/67 01/29/18 07:43 Pulse Oximetry 95 01/29/18 07:43 Height/Weight/BMI: Weight 57.4 kg Hospital Course This is a general summary of the patient's hospital course. For more details refer to the complete medical record. Hospital course: 01/27/18 Admit, observation status under the hospitalist service. Continue oxygen for comfort. DuoNebs PRN. Discussed with BERNA Landon - he will investigate minimum platelet count for a thoracentesis -- needs to be above 50K. Consult Dr. Ann. Continue Levaquin, acyclovir. Check stool for GI panel/C. diff. Fleet's enema for fecal impaction. Lisinopril held at admission - monitor renal function with Levaquin/IV contrast and monitor BP. Consult dietary given anorexia. May need to consider parenteral nutrition. Her weight is stable compared to her discharge weight 01/12/18. Consult speech given numbness to chin. Would recommend further discussions about goals of care during hospitalization. 01/28/18 Platelets increased to 46 following 2 units platelets on 01/27/18. Plan to given another 1 unit platelets now with goal of platelets >50K. Plan for thoracentesis today, 01/28/18, once platelets are >50K. Hemoglobin decreased from 8.5 at admission to 7.1 - potentially need transfusion of pRBC. Continue oxygen for comfort. DuoNebs PRN. Continue Levaquin and acyclovir for SIRS and high risk for infection. FAMILIA 1044 - will initiate neutropenic precautions. Stool cultures negative. Lisinopril held on admission due to preserve her renal function and blood pressure given recent CTA with contrast and anemia. Monitor blood pressure closely. Continue to monitor renal function with Levaquin. Consult dietary given anorexia. May need to consider parenteral nutrition. Her weight is stable compared to her discharge weight 01/12/18. Speech noted mild dysphagia and recommended mechanical soft diet with thin liquids at upright position. Tolerated thoracentesis with gradual improvement of respiratory status but still feeling SOA and resp rate elevated. While 1200cc fluid removed-Chapo Garcia notes still likely 2L (procedure stopped due to cough-rightly so). Will change to inpatient status to continue care. Need to monitor respiratory status closely. Possible repeat thoracentesis. Can stop IVF as renal status stable. 01/29/18 Continues to have pancytopenia and Neutropenia- ANC- 738 (remains on Neutropenic precautions) Continue Levaquin and acyclovir for coverage Continue oxygen for comfort. DuoNebs PRN. Tolerated thoracentesis well, removal of 1200 mL serosanguineous fluid from left hemothorax yesterday Ordered Ativan 0.5mg Po every 4 hrs as needed for anxiety Oncology is arranging transportation to [place] for further Oncology treatment Time spent with patient: discharge greater than 30 minutes Resuscitation Status: Full Code Discharge Plan - Discharge Disposition Discharge Date: 01/29/18 ([facility] [place]) Disposition: 02 Acute Care Hosp, Other *Condition: Stable Reason For Visit (Visit label in EMR): Persistent Dyspnea, Hypoxia w/l plueral effusion - Discharge Medications *Discharge Medications: New Bisacodyl Supp [Dulcolax] 10 mg RECTALLY DAILY PRN suppositor PRN Reason: Constipation Levofloxacin Pb [Levaquin 750 mg Premix] 750 mg IV Q24H bag LORazepam [Ativan] 0.5 mg PO Q4HR PRN tab PRN Reason: Anxiety Albuterol/Ipratropium [Duoneb] 3 ml AEROSOL Q6H PRN each PRN Reason: Wheezing Fleet Phospho-Soda Enema [Fleet Enema] 1 enema IA PRN PRN enema PRN Reason: Constipation Continue Magnesium Oxide [Magox] 400 mg PO BID #60 tab Allopurinol [Zyloprim] 300 mg PO DAILY Oxycodone HCl 5 mg PO Q4H PRN PRN Reason: Pain Nystatin Oral Liq. [Mycostatin] 5 ml PO QID #200 ml Potassium Chloride 10 meq PO DAILY Zovirax (acyclovir) 400 mg tablet 400 mg PO BID tab calcium carbonate 600 mg (1,500 mg)-vitamin D3 400 unit tablet 1 tab PO BID No Action Levofloxacin [Levaquin] 500 mg PO DAILY #14 tab Lenalidomide [Revlimid] 20 mg PO DAILY Lisinopril [Prinivil] 20 mg PO DAILY - Discharge Packet/Instructions *Diet: Regular *Activity: As tolerate *Pain Management/Treatment: Oxycodone as per MAR *Wound Care: N/A Additional Instructions: Lisinopril has been on hold *Expected Signs/Symptoms: na *Notify Physician if: N/A- Transfering *During Business Hours Contact: N/A *After Business Hours Contact: na *Pending Lab/Results: No Pending Lab - Referrals/Follow Up *Referrals/Follow Up: Rahul Hummel DO [Primary Care Provider] - - Patient Handouts - Dismissal Complete Discharge Instructions are:: Complete Physician Narrative - Narrative Physician: Allen Horn MD Attestation Narrative: Date: 01/29/18 Time: 1300 I have independently interviewed and examined patient prior to discharge. See my progress note for details. Medically stable for transfer to higher level of acute care.
--- NOTE | 2018-01-29 16:34 | Progress Note ---
Oncology Subjective The patient felt better since the thoracocentesis. However she still feels weak , short of breath and having chest wall pain. Exam Vital signs: Temperature 97.1 F 01/29/18 08:00 Pulse Rate 114 H 01/29/18 08:00 Respiratory Rate 22 01/29/18 10:59 Blood Pressure 132/67 01/29/18 07:43 Pulse Oximetry 95 01/29/18 07:43 - Constitutional no acute distress, cooperative - Routine Neck Exam Present: supple - Routine Chest/Breast/Axilla Exam Chest wall: Present: tenderness, mass - Routine Respiratory Exam Present: dyspnea, decreased breath sounds, distant breath sounds. Absent: wheezes - Routine Cardiovascular Exam Present: RRR. Absent: JVD - Routine Abdominal Exam Present: soft, normoactive bowel sounds Oncology Results - Labs CBC & Chem 7: 01/29/18 03:57 01/29/18 03:57 Labs: Short CBC 01/29/18 Range/Units 03:57 WBC 1.8 L* (4.5-11.0) T/MM3 Hgb 7.2 L (12-16) GM/DL Hct 21.9 L (36-46) % Plt Count 52 L (130-400) T/MM3 BMP 01/29/18 03:57 Sodium 138 Potassium 3.9 Chloride 108 H Carbon Dioxide 25 BUN 19.0 H Creatinine 0.7 Glucose 125 H Calcium 8.6 Assessment and Plan Assessment and Plan: Assessment: 1. Refractory IgA kappa multiple myeloma status post RVD 4, followed by autologous stem cell transplant done 06/2017. Recurrent disease within 6 months of stem cell transplant, now on Darzalex/Revlimid/dexamethasone; last given . Treatment has been delayed with persistent leukopenia and thrombocytopenia; has required multiple transfusions of packed RBC's/platelets. 2. Large left pleural effusion. 3. Pancytopenia most likely due to progressive disease with extensive bone marrow involvement by the relapsed myeloma. 4. Disease is rapidly progressing off therapy. Plan: 1. I discussed with the patient treatment options and prognosis. I recommend for her aggressive therapy in a tertiary center. She agreed. She will be referred to [facility] in [place]. I discussed the case with Dr. Becerra and he accepted the patient. The patient will be transferred to his service. - Time Spent With Patient Total time spent is greater than 50% in coordination of care (as documented) at patient's floor/unit and/or counseling patient: 25 - 35 minutes
== END 2018-01-29 12:20 | disposition short-term general hospital (02) | DRG 187 ==
LOC: ED 08:29 → MED 08:29
PROVIDERS: ADMIT Hospitalist; ATTEND Hospitalist